=== PATIENT | female | born 2000 | race Hispanic/Latino ===

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

== ENCOUNTER 2022-04-23 18:16 | Emergency (ER) | payer OTHER ==
--- OUTSIDE RECORDS SUMMARY | 2022-04-23 18:34 | XMS REPORT | Continuity of Care Document ---
:2000 Author Organization [facility] t Address [address] [place] [address] Care Team Providers Name Role Phone PCP, PATIENT DOES NOT HAVE A Primary Care Physician UnavailEARL Maynard Attending Clinician Unavailable Rigo VASQUES, Earl Ellison Attending Clinician Ultrasound, Heather Attending Clinician Unavailable Carmen Garcia MD Attending Clinician [phone] CARMEN GARCIA Attending Clinician Unavailable MARQUEZ VARNER Attending Clinician Unavailable MARQUEZ VARNER Attending Clinician Unavailable Lab, Champ Morley Attending Clinician Unavailable Allison Galvez DO Attending Clinician Jack Aceves MD Attending Clinician Payers Payer Name Policy Type Policy Number Effective Date Expiration Date Asmita atkins [facility] [id number] 2021 00:00:00 Problems Condition Condition Condition Status Onset Resolution Last Treating Co mments Source Name Details Category Date Date Treatment Clinician Date Dichorioni Dichorioni Disease Active U nivers c c 4-22 ity [place] Medical , , [place] antepartum antepartum Twin Twin Disease Active Univers , , 4-22 it y of antepartum antepartum [place] , , [place] Medical unspecifie unspecifie Br anch d multiple d multiple gestation gestation type type High risk High risk Disease Active Uni vers , , 4-22 [place] of [place] Obesity Obesity Disease Active Univers during during 12-16 [place] [facility] Obesity, Obesity, Disease Active Unive rs Class III, Class III, 12-16 it y of BMI BMI 00:00: [place] 40-49.9 40-49.9 00 Medical (morbid (morbid Branch obesity) obesity) Allergies, Adverse Reactions, Alerts Allergy Allergy Status Severity Reaction(s) Onset Inactive Treating Comm ents Source Name Type Date Date Clinician NO KNOWN Drug Active [facility] ALLERGIE Class ity of [facility] Social History Social Habit Start Date Stop Date Quantity Comments Source ASSERTION 2021-09-10 [facility] 00:00:00 [facility] Alcohol intake 2022-04-21 2022-04-21 Ex-drinker [facility] 00:00:00 00:00:00 (finding) [facility] Exposure to 2022-04-10 2022-04-20 Not sure [facility] SARS-CoV-2 00:00:00 10:18:00 [facility] (event) [place] Tobacco use and 2022-03-24 2022-03-24 Smokeless tobacco Un iversity of exposure 00:00:00 00:00:[address] [facility] Sex Assigned At [birth year] Universit y of 00:00:00 00:00:00 [facility] Smoking Status Start Date Stop Date Source Never smoked tobacco [facility] Medications Ordered Filled Start Stop Current Ordering Indication Dosage Frequency Signature Comments Components Source Medication Medication Date Date Medication? Clinician (SIG) Name Name PNV 2021- No Take by Univers no.153/FA/o 04-21 mouth. ity o f m3/dha/epa/ 11:28: 00:00 [place] fish 41 :00 Medical ( Branch GUMMIES ORAL) aspirin 81 Yes [id number] 81mg Take 1 Univers mg EC 8-12 tablet by ity of tablet 00:00: mouth in [place] 00 the Medical morning. Branch PNV Yes [id number] 1{each} Take 1 Uni vers 112-iron-FA 8-12 Each by ity o f -om-3s-dha- 00:00: mouth [place] epa 00 daily. Medical (VITAFOL Branch GUMMIES) 3.33 mg iron- 0.33 mg Chew aspirin 81 0 Yes [id number] 81mg Take 1 Univers mg EC 8-12 tablet by ity of tablet 00:00: mouth in [place] 00 the Medical morning. Branch PNV 0 Yes [id number] 1{each} Take 1 Uni vers 112-iron-FA 8-12 Each by ity o f -om-3s-dha- 00:00: mouth [place] epa 00 daily. Medical (VITAFOL Branch GUMMIES) 3.33 mg iron- 0.33 mg Chew aspirin 81 0 Yes [id number] 81mg Take 1 Univers mg EC 8-12 tablet by ity of tablet 00:00: mouth in [place] 00 the Medical morning. Branch PNV 0 Yes [id number] 1{each} Take 1 Uni vers 112-iron-FA 8-12 Each by ity o f -om-3s-dha- 00:00: mouth [place] epa 00 daily. Medical (VITAFOL Branch GUMMIES) 3.33 mg iron- 0.33 mg Chew aspirin 81 2021-0 Yes [id number] 81mg Take 1 U nivers mg EC 6-03 tablet by ity of tablet 00:00: mouth [place] 00 daily. Medical Branch aspirin 81 2021-0 Yes [id number] 81mg Take 1 U nivers mg EC 6-03 tablet by ity of tablet 00:00: mouth [place] 00 daily. Medical Branch aspirin 81 2021-0 Yes [id number] 81mg Take 1 U nivers mg EC 6-03 tablet by ity of tablet 00:00: mouth [place] 00 daily. Medical Branch aspirin 81 2021-0 Yes [id number] 81mg Take 1 U nivers mg EC 6-03 tablet by ity of tablet 00:00: mouth [place] 00 daily. Medical Branch aspirin 81 2021-0 Yes [id number] 81mg Take 1 U nivers mg EC 6-03 tablet by ity of tablet 00:00: mouth [place] 00 daily. Medical Branch aspirin 81 2021-0 Yes [id number] 81mg Take 1 U nivers mg EC 6-03 tablet by ity of tablet 00:00: mouth [place] 00 daily. Medical Branch aspirin 81 2021-0 2021- No [id number] 81mg Take 1 Univers mg EC 01-27 tablet by ity of tablet 00:00: 00:00 mouth [place] 00 :00 daily. Medical Branch PNV 2021-0 Yes Take by Univers no.153/FA/o 4-22 mouth. ity of m3/dha/epa/ 11:08: [place] [address] Medical ( Branch GUMMIES ORAL) PNV 2021-0 Yes Take by Univers no.153/FA/o 4-22 mouth. ity of m3/dha/epa/ 11:08: [place] [address] Medical ( Branch GUMMIES ORAL) PNV 2021-0 Yes Take by Univers no.153/FA/o 4-22 mouth. ity of m3/dha/epa/ 11:08: [place] [address] Medical ( Branch GUMMIES ORAL) PNV 2021-0 Yes Take by Univers no.153/FA/o 4-22 mouth. ity of m3/dha/epa/ 11:08: [place] [address] Medical ( Branch GUMMIES ORAL) PNV 2021-0 Yes Take by Univers no.153/FA/o 4-22 mouth. ity of m3/dha/epa/ 11:08: [place] [address] Medical ( Branch GUMMIES ORAL) PNV 2021-0 Yes Take by Univers no.153/FA/o 4-22 mouth. ity of m3/dha/epa/ 11:08: [place] [address] Medical ( Branch GUMMIES ORAL) PNV 2021-0 Yes Take by Univers no.153/FA/o 4-22 mouth. ity of m3/dha/epa/ 11:08: [place] [address] Medical ( Branch GUMMIES ORAL) PNV 0 Yes Take by Univers no.153/FA/o 4-22 mouth. ity of m3/dha/epa/ 11:08: [place] [address] Medical ( Branch GUMMIES ORAL) Immunizations Ordered Filled Immunization Date Status Comments [facility] e Immunization Name Name [facility] 2022-03-24 Completed University of 00:00:00 [facility] TDAP 2022-03-24 Completed University of 00:00:00 [facility] TDAP 2022-03-24 Completed University of 00:00:00 [facility] TDAP 2022-03-24 Completed University of 00:00:00 [facility] TDAP 2022-03-24 Completed University 00:00:00 [place] [facility] TDAP 2022-03-24 Completed University 00:00:00 [place] [facility] Vital Signs Vital Name Observation Time Observation Value Comments Source Systolic blood 2022-04-21 16:12:00 125 mm[Hg] Univer sity of pressure [place] [facility] Diastolic blood 2022-04-21 16:12:00 83 mm[Hg] Unive rsity of pressure [place] [facility] Heart rate 2022-04-21 16:12:00 68 /min Universi ty [facility] [place] [facility] Body temperature 2022-04-21 16:12:00 36.72 Mary Univ ersity of [place] [facility] Body height 2022-04-21 16:12:00 152.4 cm Universi ty of [place] [facility] Body weight 2022-04-21 16:12:00 113.671 kg Universi ty of [place] [facility] BMI 2022-04-21 16:12:00 48.94 kg/m2 Universi ty [facility] [place] [facility] Systolic blood 2022-04-07 13:23:00 122 mm[Hg] Univer sity of pressure [place] [facility] Diastolic blood 2022-04-07 13:23:00 76 mm[Hg] Unive rsity of pressure [place] [facility] Heart rate 2022-04-07 13:23:00 71 /min Universi ty [facility] [place] [facility] Body temperature 2022-04-07 13:23:00 36.83 Mary Univ ersity of [place] [facility] Respiratory rate 2022-04-07 13:23:00 18 /min Univ ersity of [place] [facility] Body height 2022-04-07 13:23:00 152.4 cm Universi ty [facility] [place] [facility] Body weight 2022-04-07 13:23:00 109.317 kg [facility]i ty [facility] [place] [facility] BMI 2022-04-07 13:23:00 47.07 kg/m2 [facility]i ty [facility] [place] [facility] Systolic blood 2022-03-24 14:26:00 118 mm[Hg] Univer sity of pressure [place] [facility] Diastolic blood 2022-03-24 14:26:00 84 mm[Hg] Unive rsity of pressure [place] [facility] Heart rate 2022-03-24 14:26:00 72 /min Universi ty [facility] [place] [facility] Body temperature 2022-03-24 14:26:00 36.78 [facility] Body height 2022-03-24 14:26:00 152.4 cm Universi ty [facility] [place] [facility] Body weight 2022-03-24 14:26:00 106.595 kg Universi ty [facility] [place] [facility] BMI 2022-03-24 14:26:00 45.90 kg/m2 Universi ty [facility] Branch Systolic blood 2022-03-10 14:05:00 107 mm[Hg] Univer sity [facility] Diastolic blood 2022-03-10 14:05:00 79 mm[Hg] [facility] Heart rate 2022-03-10 14:05:00 138 /min Universi ty [facility] Body temperature 2022-03-10 14:05:00 37 [facility] Body height 2022-03-10 14:05:00 152.4 cm Universi ty [facility] Body weight 2022-03-10 14:05:00 104.962 kg Universi ty [facility] Medical Branch BMI 2022-03-10 14:05:00 45.19 kg/m2 Universi ty [facility] Procedures Procedure Date / Time Performed Performing Clinician [facility] e NON-STRESS TEST 2022-04-21 17:15:51 Earl Sierra [facility] POCT URINALYSIS W/O 2022-04-21 00:00:00 Earl Sierra [facility] POCT URINALYSIS W/O 2022-04-07 00:00:00 Marquez [facility] TDAP VACCINE, >11 YRS, 2022-03-24 14:44:04 Earl Sierra [facility] POCT URINALYSIS W/O 2022-03-24 00:00:00 Earl Sierra [facility] POCT URINALYSIS W/O 2022-03-10 00:00:00 Marquez [facility] SECOND AND THIRD 2022-02-23 12:54:00 Earl Sierra [facility] ULTRASOUND Medical [facility] Encounters Start End Encounter Admission Attending Care Care Encounter Source Date/Time Date/Time Type Type Clinicians Facility Department ID 2022-05-18 2022-05-18 Outpatient P [facility] [id number] Univers 08:00:00 08:00:00 [id number] ity [facility] 2022-05-02 2022-05-02 Outpatient R [facility] [id number] Univers 09:00:00 09:00:00 [id number] ity [facility] 2022-05-02 2022-05-02 Outpatient R [facility] [id number] Univers 09:00:00 09:00:00 ity [facility] 2022-04-21 2022-04-21 Outpatient R EARL SIERRA [facility] [id number] Univers 11:15:00 12:05:44 ity [facility] 2022-04-21 2022-04-21 Routine Earl Sierra [facility] 1.2.840.114 [id number] Univers 11:15:00 12:05:44 Cam MARION 350.1.13.10 i ty of Visit WOMEN'S 4.2.7.2.686 [facility] [id number] [address] 2022-04-21 2022-04-21 Outpatient R EARL SIERRA [facility] [id number] Univers 11:15:00 11:15:00 [id number] ity [facility] 2022-04-20 2022-04-20 Motor Teacher Ultrasound, [facility] 1.2 .840.114 [id number] Univers 08:00:00 09:00:00 Visit Carmen Garcia HOME HEALTH PHYSICAL THERAPIST 350.1. 13.[address] [facility] 4.2.7.2.686 [place] MATERNAL [id number] Med ical & CHILD [address] [place] [address] 2022-04-20 2022-04-20 Outpatient P MARVIN [facility] [id number] Univers 08:00:00 08:00:00 SYD it y of CARMEN Tian [facility] 2022-04-07 2022-04-07 Outpatient R MARQUEZ VARNER [facility] B [id number] Univers 08:30:00 08:46:14 PAULAMARQUEZ BAE ity [facility] 2022-04-07 2022-04-07 Routine Paulajoaquín RIFLORINDA [place] 1.2.840.114 [id number] Univers 08:30:00 08:46:14 Marquez THOMPS[place] 350.1.13.10 i ty of Visit [place] 4[place]2.686 [place] [id number] [address] 2022-04-07 2022-04-07 Outpatient R MARQUEZ VARNER [facility] B [id number] Univers 08:30:00 08:30:00 PAULAMARQUEZ BAE [id number] ity [facility] 2022-03-28 2022-03-28 Telephone Earl Sierra [facility] 1.2.840.114 [id number] Univers 00:00:00 00:00:00 Scot THOM[place] 350.1.13.10 it y of [place] 4[place]2.7.2.686 [place] [id number] [address] 2022-03-27 2022-03-27 Motor Teacher Lab, Ang - [facility] 1.2.840.1 [id number] Univers 08:30:00 08:45:00 Visit Earl Sierra [facility] 350.1.13.10 ity of [place] 4.2.7.2.686 [place] GARRISON?BLEA [id number] Md valentina [address] MEDICAL OFFICE BUILDING 2022-03-27 2022-03-27 Outpatient R [facility] [id number] Univers 08:30:00 08:30:[id number] [facility] 2022-03-27 2022-03-27 Outpatient R RIGO EARL [facility] [id number] Univers 08:30:00 08:30:00 ity [facility] 2022-03-24 2022-03-24 Outpatient R RIGO EARL [facility] [id number] Univers 09:15:00 09:49:29 ity [facility] 2022-03-24 2022-03-24 Routine SierraEarl [facility] 1.2.840.114 [id number] Univers 09:15:00 09:49:29 Scot [place] 350.1.13.10 i ty of Visit [place] 4[place]2.7.2.[place] [id number] [address] 2022-03-24 2022-03-24 Outpatient R EARL SIERRA [facility] [id number] Univers 09:15:00 09:15:00 [id number] ity [facility] 2022-03-23 2022-03-23 Motor Teacher Ultrasound, Champ[facility] 1.2 .840.114 [id number] Univers 08:00:00 09:00:00 Visit Allison Galvez HOME HEALTH PHYSICAL THERAPIST 350.1.13.10 ity of REGIONAL 4.2.7.2.686 [place] MATERNAL [id number] [facility] & CHILD [address] [place] [address] 2022-03-23 2022-03-23 Outpatient P VENU [facility] [id number] Univers 08:00:00 08:00:00 ALLISON ity [facility] 2022-03-14 2022-03-14 Outpatient R [facility] [id number] Univers 09:00:00 09:00:00 [id number] ity [facility] 2022-03-14 2022-03-14 Outpatient R EARL SIERRA [facility] [id number] Univers 09:00:00 09:00:00 ity [facility] 2022-03-10 2022-03-10 Outpatient R SIERRA EARL [facility] [id number] Univers 09:15:00 09:23:48 ity [facility] 2022-03-10 2022-03-10 Routine TritschlerMarquez [facility] 1.2. 840.114 [id number] Univers 09:15:00 09:23:48 Prisca Sierralawrence [place] 350.1.13.10 ity of Visit [place] 4.2.7.2.[place] [id number] [address] 2022-02-23 2022-02-23 Motor Teacher Ultrasound, Ang[facility] 1.2 .840.114 [id number] [facility] 08:00:00 09:30:00 Visit Jack Aceves HOME HEALTH PHYSICAL THERAPIST 350.1.13.10 [facility] 4.2.7.2.686 [place] MATERNAL [id number] [facility] ical & CHILD [address] [place] [address] Results Test Description Test Time Test Comments Results Result Comments Source POCT URINALYSIS W/O SPECIFIC GRAVITY 2022-04-21 16:23:00 Test Item Value Reference Range Interpretation Comme nts POCT PH U (test code = 3254) n/a 5-8 POCT U LEUK EST (test code = 3263) n/a Negative - Negative POCT U NIT (test code = 3262) n/a Negative - Negative POCT U PROT (test code = 3259) Negative - Negative POCT U GLU (test code = 3256) Normal Negative - Negative POCT U KETONE (test code = 3258) n/a Negative - Negative POCT U BLD (test code = 3257) n/a Negative - Negative [facility]/O SPECIFIC [id number] 13:28:00 Test Item Value Reference Range Interpretation Comments POCT PH U (test code = 3254) N/A 5-8 POCT U LEUK EST (test code = N/A Negative - Negative 3263) POCT U NIT (test code = 3262) N/A Negative - Negative POCT U PROT (test code = 3259) Trace Negative - Negative POCT U GLU (test code = 3256) Negative Negative - Negative POCT U KETONE (test code = 3258) N/A Negative - Negative POCT U BLD (test code = 3257) N/A Negative - Negative [facility] W/O SPECIFIC [id number] 14:25:00 Test Item Value Reference Range Interpretation Comments POCT PH U (test code = 3254) n/a 5-8 POCT U LEUK EST (test code = 3263) n/a Negative - Negative POCT U NIT (test code = 3262) n/a Negative - Negative POCT U PROT (test code = 3259) ++100 Negative - Negative POCT U GLU (test code = 3256) Normal Negative - Negative POCT U KETONE (test code = 3258) n/a Negative - Negative POCT U BLD (test code = 3257) n/a Negative - Negative [facility] W/O SPECIFIC [id number] 14:11:00 Test Item Value Reference Range Interpretation Comments POCT PH U (test code = 3254) n/a 5-8 POCT U LEUK EST (test code = n/a Negative - Negative 3263) POCT U NIT (test code = 3262) n/a Negative - Negative POCT U PROT (test code = 3259) negative Negative - Negative POCT U GLU (test code = 3256) normal Negative - Negative POCT U KETONE (test code = 3258) n/s Negative - Negative POCT U BLD (test code = 3257) n/a Negative - Negative [facility], NAAT, [id number] 18:09:27 Test Item Value Reference Range Interpretation Comments GONORRHEA, NAAT NEGATIVE NEGATIVE IMPORTA NT NOTICE: SEE (test code = [place] [address]) [email or web address] Cohda WirelesssUrineKit Note: Assay methodology is nucleic acid amplification b y second baker m ediated amplification ( TMA) utilizing the A ptima Combo 2 Assay. CHLAMYDIA, NAAT NEGATIVE NEGATIVE IMPORTA NT NOTICE: SEE (test code = [place] [address]) [email or web address] New York Times/Alvarez heCobasUrineKit Note: Assay methodology is nucleic acid amplification b y second baker m ediated amplification ( TMA) utilizing the A ptima Combo 2 Assay. UNLES S OTHERWISE INDICATED, ALL TESTING PERFORMED [facility] NICNC PATHOLOGY LABOR [facility] [address] [place] [id number] [place] [address] DIRECTOR: MARCELLA MCCULLOUGH M.D. CLIA NUMBER [id number] CAP ACCREDITATION N O. [id number] HEMOGLOBIN [id number] 09:22:30 Test Item Value Reference Range Interpretation Comments HEMOGLOBIN A1 (test 97.1 % 95.0-98.5 code = 2575) HEMOGLOBIN A2 (test 2.9 % 1.6-3.7 code = 2576) HEMOGLOBIN F () 0.0 % 0.0-2.0 (test code = 2722) HEMOGLOBIN S (test NONE % NONE DETECTED code = 2724) HEMOGLOBIN C (test NONE % NONE DETECTED code = 2726) OTHER HEMOGLOBIN NONE DETEC % NONE DETECTED VARIANT (test code = 62790) PATHOLOGIST'S (NOTE) NO ABNORMAL INTERPRETATION (test HEMOGLO BINS code = 2577) IDENTIFIED. PENNY FAITH M.D. CT/NG, NAAT, [id number] 08:17:43 Test Item Value Reference Range Interpretation Comments GONORRHEA, NAAT TEST NOT PERFORMED NEGATIVE Unable to perform (test code = testing, [place] [address]) not received.Charge s adjusted as applicable. CHLAMYDIA, NAAT TEST NOT PERFORMED NEGATIVE Unable to perform (test code = testing, specim [place] 330[address]) not received.Charge s adjusted as applicable. DRUG ABUSE SCREEN 10 REFLEX [id number] 08:17:28 Test Item Value Reference Interpretation Comments Range COMMENTS (test code TEST NOT Unable t o perform = 3222) PERFORMED testing, specim en not received.Charge s adjusted as elena licable. Note: Validity testing suggests an alt ered, adulterated or compromised spe cimen. Analytic detect ion may be affected. Consideration s hould be given to repeat analysis on a newly acqu ired specimen or cli nical correlation and medication revi ew. AMPHETAMINES (test TEST NOT NEGATIVE code = 3201) PERFORMED BARBITURATES (test TEST NOT NEGATIVE code = 3202) PERFORMED BENZODIAZEPINES TEST NOT NEGATIVE (test code = 3203) PERFORMED CANNABINOIDS (test TEST NOT NEGATIVE code = 3204) PERFORMED COCAINE METABOLITE TEST NOT NEGATIVE (test code = 3205) PERFORMED OPIATES (test code = TEST NOT NEGATIVE 3209) PERFORMED OXYCODONE (test code TEST NOT NEGATIVE = 68617) PERFORMED PHENCYCLIDINE (test TEST NOT NEGATIVE code = 3210) PERFORMED METHADONE (test code TEST NOT NEGATIVE = 3207) PERFORMED BUPRENORPHINE (test TEST NOT NEGATIVE code = 42066) PERFORMED SOURCE (test code = TEST NOT SEE BELOW FOR 729083) PERFORMED THRESHOLDS AND IMPORTANT METHOD NOTES * ANALYTE SCREENING CUTOF F CONFIRMATORY CUTOFF ___AMPHETAMINES 500 NG/ML 100 NG/MLBARBITURAT ES 200 NG/ML 100 NG/MLBENZODIAZE PINES 200 NG/ML 100 NG/MLCANNABINOI DS (THC) 20 NG/ML 15 NG/ MLCOCAINE METABOLITES 150 NG/ML 100 NG/MLOPIATE METABOLITES 30 0 NG/ML 100 NG/MLOXYCOD ONE 100 NG/ML 100 NG/MLPHENCYCLID INE (PCP) 25 NG/ML 25 NG/MLMETHADONE 300 NG/ML 100 NG/MLBUPREN ORPHINE 5 NG/ML 5 NG/ML N OTE: Screening metho dology is qualitative Enz yme Immunoassay.The screening metho d may be less sensitive for certain medicationsincl uding clonazepam and lorazepam in the benzodia zepine assay andtramad ol or fentanyl in the opiate assay, amongst others. Patientcomplian ce, hydration statu s, timing and dose of med ications, drugabsorption and specimen qualit y may affect screenin g assay.For clini aleksandr discrepancies, consider directed testin g for specificcompoun ds or contact the lab oratory within specimen stability tofor west for confirmatory te sting. This test is sp ecified for medicalpurp oses only. It is not valid for forensic us e. UNLESS OTHERWISE INDIC ATED, ALL TESTING PERFORM ED ATCLINICAL PATH OLOGY LABORATORIES, I OR. [address] [place] [id number] LABORATORY DIRE CTOR: MARCELLA OLSON M.D. CLIA NUMBER [id number] [facility] [place] [id number] DRUG ABUSE SCREEN 10 REFLEX [id number] 05:02:41 Test Item Value Reference Range Interpretation Comments AMPHETAMINES (test NEGATIVE NEGATIVE code = 3201) BARBITURATES (test NEGATIVE NEGATIVE code = 3202) BENZODIAZEPINES (test NEGATIVE NEGATIVE code = 3203) CANNABINOIDS (test NEGATIVE NEGATIVE code = 3204) COCAINE METABOLITE NEGATIVE NEGATIVE (test code = 3205) OPIATES (test code = NEGATIVE NEGATIVE 3209) OXYCODONE (test code NEGATIVE NEGATIVE = 15699) PHENCYCLIDINE (test NEGATIVE NEGATIVE code = 1420) METHADONE (test code NEGATIVE NEGATIVE = 3207) BUPRENORPHINE (test NEGATIVE NEGATIVE code = 61615) SOURCE (test code = URINE SEE BELOW FOR 852324) THRESHOLDS AND IMPORTANT METHOD NOTES * ANALYTE SCREENING CUTOF F CONFIRMATORY CUTOFF AMPHETAMINES 50 0 NG/ML 100 NG/MLBARBIT URATES 200 NG/ML 100 NG/MLBENZODIAZE PINES 200 NG/ML 100 NG/MLCANNABINOI DS (THC) 20 NG/ML 15 NG /MLCOCAINE METABOLITES 150 NG/ML 100 NG/MLOPIATE MET ABOLITES 300 NG/ML 100 NG/MLOXYCODONE 100 NG/ML 100 NG/MLPHENCY CLIDINE (PCP) 25 NG/ML 25 NG/MLMETHADONE 300 NG/ML 100 NG/MLBUPREN ORPHINE 5 NG/ML 5 NG/ML N OTE: Screening metho dology is qualitative Enz yme Immunoassay.The screening method may be l ess sensitive for c ertain medicationsincl uding clonazepam and lorazepam in the benzodia zepine assay andtramad ol or fentanyl in the opiate assay, amongst others. Patientcomplian ce, hydration statu s, timing and dose of med ications, drugabsorption and specimen qualit y may affect screenin g assay.For clini aleksandr discrepancies, consider directed testin g for specificcompoun ds or contact the lab oratory within specimen stability toforward for confirmatory te sting. This test is sp ecified for medicalpurp oses only. It is not valid for forensic use. VARICELLA ZOSTER [id number] 18:06:16 Test Item Value Reference Range Interpretation Comments VARICELLA ZOSTER IgG 37 INDEX SEE BELOW L INTERP RETATION VZV IgG (test code = 86853) NEGATIVE . . . . . . . . . . . . INDEX < 135 EQUIVOCAL. . . . . . . . . . . . INDEX 1 35-164 NOTE: CONSIDER RETESTING IN A CLINICALLY SUITABLE PERIOD OF TIME, NO SOONER THAN 1-2 WEEKS. POSITIVE . . . . . . . . . . . . INDEX >=165 CULTURE, [id number] 09:18:22SPECIMEN NUMBER: [id number] CULTURE, URINE SPECIMEN NUMBER: [id number] SPECIMEN COMMENT: URINE SOURCE:URINE REPORT STATUS: FINAL FINAL REPORT: 11/06/2021 10-50,000 CFU/ML MIXED UROGENITAL FLORARPR 2021-11-05 05:45:07 Test Item Value Reference Range Interpretation Comments RPR RESULT (test code = NON-REACTIVE NON-REACTIVE 3501) RPR TITER (test code = 3500) NOT INDIC. TITER NOT INDIC. OBSTETRIC PANEL + [id number] 04:21:28 Test Item Value Reference Range Interpretation Comments WBC (test code = 7.6 K/UL 3.5-11.0 1001) RBC (test code = 4.46 M/UL 3.80-5.40 1002) HEMOGLOBIN (test 13.5 G/DL 11.5-15.5 code = 1003) HEMATOCRIT (test 39.2 % 34.0-45.0 code = 1004) MCV (test code = 87.9 fL 80.0-99.0 1005) MCH (test code = 30.3 PG 25.0-33.0 1006) MCHC (test code = 34.4 G/DL 31.0-36.0 1007) RDW (test code = 12.3 % 11.5-15.0 1038) NEUTROPHILS (test 67.0 % code = 1008) LYMPHOCYTES (test 23.3 % code = 1010) MONOCYTES (test 7.3 % code = 1011) EOSINOPHILS (test 1.0 % code = 1012) BASOPHILS (test 0.7 % code = 1013) IMMATURE 0.7 % GRANULOCYTES (test code = 1036) NUCLEATED RBCS 0.0 /100 WBC'S See_Comment [Automated message] (test code = 1065) The syste m which generated this result transmit ana reference range : 0.0. The refere nce range was not u sed to interpret th is result as normal/abnormal . PLATELET COUNT 248 K/UL 130-400 (test code = 1015) ABSOLUTE 5.12 K/UL 1.50-7.50 NEUTROPHILS (test code = 1066) ABSOLUTE 1.78 K/UL 1.00-4.00 LYMPHOCYTES (test code = 1067) ABSOLUTE MONOCYTES 0.56 K/UL 0.20-1.00 (test code = 1068) ABSOLUTE 0.08 K/UL 0.00-0.50 EOSINOPHILS (test code = 1040) ABSOLUTE BASOPHILS 0.05 K/UL 0.00-0.20 (test code = 1069) ABS IMMATURE 0.05 K/UL 0.00-0.10 GRANULOCYTES (test code = 1020) ABS NUCLEATED RBCS 0.00 K/UL 0.00-0.11 (test code = 32458) BLOOD TYPE AND RH A POSITIVE A HISTORI ALEKSANDR RECORD (test code = 3901) CHECK FOR PREVIOUS RESULTS IS NOT PERFORMED.THESE RESULTS SHOULD BE CORRELATED WITH RESULTS OF PRIO R BLOODTYPING AND ANTIBODY SCREEN STUDIES. ANTIBODY SCREEN NEGATIVE NEGATIVE A HISTORICA L RECORD (test code = 3902) CHECK FOR PREVIOUS RESULTS IS NOT PERFORMED.THESE RESULTS SHOULD BE CORRELATED WITH RESULTS OF PRIO R BLOODTYPING AND ANTIBODY SCREEN STUDIES. RUBELLA ANTIBODY 262 IU/ML SEE BELOW INTERPRETA TION SCREEN (test code = RUBELLA IgG 4600) NON-REACTIVE/NO N-IMM UNE . . . . . . . IU/ML <10 REACTIVE/IMMUNE . . . . . . . . . . . IU/ML >=10 RUBELLA IgG INTERP REACTIVE REACTIVE (test code = 92815) HEPATITIS B SURF AG NON-REACTIVE NON-REACTIVE (test code = 2739) RPR (test code = NON-REACTIVE NON-REACTIVE 86263) RPR TITER (test NOT INDIC. NOT INDIC. code = 3500) TITER HIV 1/2 4TH GEN, NON-REACTIVE NON-REACTIVE RFLX CONF (test code = 3514) HEPATITIS C REFLEX [id number] 04:21:28 Test Item Value Reference Range Interpretation Comments HEPATITIS C ANTIBODY (test code NON-REACTIVE NON-REACTIVE = 4675)
--- NOTE | 2022-04-23 18:46 | ER ---
Nurse's Notes [facility] Name: Monika Ames Age: 22 yrs Sex: Female : 2000 Arrival Date: 04/23/2022 Time: 18:18 Bed Waiting Private MD: Diagnosis: Acute Otalgia Presentation: 04/23 18:37 Chief complaint: Left ear pain 8/10 x 2 days. Pt reports she is 34 weeks . hb Coronavirus screen: At this time, the client does not indicate any symptoms associated with coronavirus-19. Ebola Screen: No symptoms or risks identified at this time. Initial Sepsis Screen: Does the patient meet any 2 criteria? No. Patient's initial sepsis screen is negative. Does the patient have a suspected source of infection? No. Patient's initial sepsis screen is negative. Risk Assessment: Do you want to hurt yourself or someone else? Patient reports no desire to harm self or others. Onset of symptoms was April 21, 2022. 18:37 Method Of Arrival: Ambulatory hb 18:37 Acuity: GABRIELLA 4 hb Triage Assessment: 18:40 General: Appears in no apparent distress. Behavior is calm, cooperative. Pain: Pain hb currently is 8 out of 10 on a pain scale. EENT: Reports left ear pain. Neuro: Level of Consciousness is awake, alert, obeys commands, Oriented to person, place, time, situation. Cardiovascular: Patient's skin is warm and dry. Respiratory: Respiratory effort is even, unlabored, Respiratory pattern is regular, symmetrical. Historical: - Allergies: 18:39 No Known Allergies; hb - Home Meds: 18:39 None [Active]; hb - PMHx: 18:39 None; hb - PSHx: 18:39 None; hb - Immunization history:: Adult Immunizations up to date. - Social history:: Smoking status: Patient denies any tobacco usage or history of. Screenin:41 Abuse screen: Denies threats or abuse. Denies injuries from another. Nutritional hb screening: No deficits noted. Tuberculosis screening: No symptoms or risk factors identified. Fall Risk None identified. Assessment: 18:41 General: see triage assessment. hb Vital Signs: 18:37 BP 149 / 91; Pulse 100; Resp 18; Temp 99(TE); Pulse Ox 99% on R/A; Pain 8/10; hb ED Course: 18:18 Patient arrived in ED. rg4 18:19 Ricardo Saleh PA is PHCP. gisele 18:19 Collin López MD is Attending Physician. jm 18:39 Triage completed. hb 18:39 Arm band placed on. hb 18:41 Patient has correct armband on for positive identification. hb 18:41 No provider procedures requiring assistance completed. Patient did not have IV access hb during this emergency room visit. Administered Medications: No medications were administered Medication: 18:41 VIS not applicable for this client. hb Outcome: 18:45 Discharge ordered by . [facility] 18:49 Discharged to home ambulatory. hb 18:49 Condition: stable 18:49 Discharge instructions given to patient, Instructed on discharge instructions, follow up and referral plans. medication usage, Demonstrated understanding of instructions, follow-up care, medications, Prescriptions given X 2. 18:49 Patient left the ED. hb Signatures: Ricardo Saleh PA PA jmm Baxter, Heather RN RN Poonam Alonzo rg4 Corrections: (The following items were deleted from the chart) 18:40 18:37 Chief complaint: Left ear pain 8/10 x 2 days. hb hb
--- NOTE | 2022-04-23 18:46 | EDPHYS ---
Physician Documentation [facility] Name: Monika Ames Age: 22 yrs Sex: Female : 2000 Arrival Date: 04/23/2022 Time: 18:18 Bed Waiting Private MD: ED Physician Collin López HPI: 04/23 18:44 This 22 yrs old Female presents to ER via Ambulatory with complaints of Ear jmm Pain. 18:44 The patient presents with pain. Onset: The symptoms/episode began/occurred gradually, 1 jmm day(s) ago. Modifying factors: The symptoms are alleviated by nothing, the symptoms are aggravated by nothing. Associated signs and symptoms: Pertinent negatives: cough, vomiting. The patient has not experienced similar symptoms in the past. Historical: - Allergies: 18:39 No Known Allergies; hb - Home Meds: 18:39 None [Active]; hb - PMHx: 18:39 None; hb - PSHx: 18:39 None; hb - Immunization history:: Adult Immunizations up to date. - Social history:: Smoking status: Patient denies any tobacco usage or history of. ROS: 18:44 Constitutional: Negative for fever, chills, and weight loss, Eyes: Negative for injury, jmm pain, redness, and discharge. 18:44 ENT: Positive for ear pain. 18:44 All other systems are negative. Exam: 18:44 Constitutional: This is a well developed, well nourished patient who is awake, alert, jmm and in no acute distress. Head/Face: atraumatic. Eyes: EOMI, no conjunctival erythema appreciated 18:44 Neck: Trachea midline, Supple Chest/axilla: Normal chest wall appearance and motion. Cardiovascular: Regular rate and rhythm. No edema appreciated Respiratory: Normal respirations, no respiratory distress appreciated Abdomen/GI: Non distended Back: Normal ROM Skin: General appearance color normal MS/ Extremity: Moves all extremities, no obvious deformities appreciated, no edema noted to the lower extremities Neuro: Awake and alert Psych: Behavior is normal, Mood is normal, Patient is cooperative and pleasant 18:44 ENT: Ear canal(s): swelling, that is moderate, of the left canal, TM's: erythema, that is mild. Vital Signs: 18:37 BP 149 / 91; Pulse 100; Resp 18; Temp 99(TE); Pulse Ox 99% on R/A; Pain 8/10; hb MDM: 18:45 Data reviewed: vital signs, nurses notes. Counseling: I had a detailed discussion with [facility] the patient and/or guardian regarding: the historical points, exam findings, and any diagnostic results supporting the discharge/admit diagnosis, the need for outpatient follow up, to return to the emergency department if symptoms worsen or persist or if there are any questions or concerns that arise at home. 18:45 Patient medically screened. [facility] Administered Medications: No medications were administered Disposition: 04/24 07:09 Co-signature as Attending Physician, Collin López MD. rn Disposition Summary: 04/23/22 18:45 Discharge Ordered Location: Home [facility] Condition: Stable [facility] Diagnosis - Acute Otalgia [facility] Followup: [facility] - With: Private Physician - When: 1 - 2 days - Reason: Recheck today's complaints, Continuance of care, Re-evaluation by your physician Discharge Instructions: - Discharge Summary Sheet [facility] - Earache, Adult [facility] Forms: - Medication Reconciliation Form [facility] - Thank You Letter [facility] - Antibiotic Education [facility] - Prescription Opioid Use [facility] Prescriptions: - Cortisporin-TC 3.3-3-10-0.5 mg/mL Otic Suspension - instill 4 drops by OTIC route every 6 hours; 1 bottle; Refills: 0, Product [facility] Selection Permitted - Augmentin 875-125 mg Oral Tablet - take 1 tablet by ORAL route every 12 hours for 10 days; 20 tablet; Refills: 0, [facility] Product Selection Permitted Signatures: Ricardo Saleh PA PA [facility] Collin López MD MD rn Baxter, Heather, RN RN hb
[2022-04-23 20:55] VITALS: BP 149/91; TEMP 99; O2SAT 99
== END 2022-04-23 18:49 | disposition home or self-care (01) ==
LOC: ER 18:16
DX: H92.02 Otalgia, left ear (principal)
CPT/HCPCS: 99282

== ENCOUNTER 2023-02-27 21:12 | Emergency (ER) | payer OTHER ==
--- OUTSIDE RECORDS SUMMARY | 2023-02-27 21:17 | XMS REPORT | Continuity of Care Document ---
:2000 Author Organization [facility] t Address [address] [place] [address] Care Team Providers Name Role Phone PCP, PATIENT DOES NOT HAVE A Primary Care Physician Unavaila MARQUEZ Whalen Attending Clinician Unavailable MARQUEZ VARNER Attending Clinician Unavailable Reina Rodriguez MA Attending Clinician Unavailable Nurse, [facility] Attending Clinician Unavailable EARL SIERRA Attending Clinician Unavailable Kim Bentley MD Attending Clinician Earl Sierra MD Attending Clinician KIM BENTLEY Attending Clinician Unavailable 1, [facility] Nst Room Attending Clinician Unavailable Ultrasound, [facility]-Mfjazlyn Attending Clinician Unavailable Carmen Garcia MD Attending Clinician [phone] CARMEN GARCIA Attending Clinician Unavailable Lab, Ang - Db Attending Clinician Unavailable Allison Galvez DO Attending Clinician Anna Aceves MD Attending Clinician ANNA ACEVES Attending Clinician Unavailable 3, [facility] [facility] Usg Room Attending Clinician Unavailable Carmelina Boss MD Attending Clinician [phone] CARMELINA BOSS Attending Clinician Unavailable Doctor Unassigned, [place] Attending Clinician Unavailable RIGO EARL CAM Admitting Clinician Unavailable Earl Sierra MD Admitting Clinician Payers Payer Name Policy Type Policy Number Effective Date Expiration Date S milly [facility] [id number] 2021 00:00:00 Problems Condition Condition Condition Status Onset Resolution Last Treating Co mments Source Name Details Category Date Date Treatment Clinician Date Need for Need for Disease Active Unive rs vaccinatio vaccinatio 2-06 it y of n n 00:00: [place] [address] Medical Branch Elevated Elevated Disease Active Unive rs blood blood 2-06 ity of pressure pressure 00:00: [place] reading reading 00 Medical without without Branch diagnosis diagnosis of of hypertensi hypertensi on on Well woman Well woman Disease Active 2021-08 U nivers exam exam 0-30 ity of 00:00: [place] [facility] Branch BMI BMI Disease Active 2021-08 Univers 37.0-37.9, 37.0-37.9, 0-30 it y of adult adult 00:00: [place] [facility] BMI BMI Disease Active Univers 45.0-49.9, 45.0-49.9, 9-17 it y of adult adult 00:00: [address] Branch Encounter Encounter Disease Active Uni vers for post for post 9-16 ity of surgical surgical 00:00: [place] wound wound 00 Medical check check Branch Pre-eclamp Pre-eclamp Disease Active U nivers alejandro, mild, alejandro, mild, 9-09 [place] [address] [place] [address] PROM PROM Disease Active Univers (premature (premature 9-08 it y of rupture of rupture of 00:[place] membranes) membranes) 00 Me dical [place] Liveborn Liveborn Disease Active Unive rs infant, of infant, of 9-08 it y of twin twin 00:00: [place] , , 00 Me dical born in born in [facility] hospital by by delivery delivery Dichorioni Dichorioni Disease Active U nivers c c 4-22 ity of diamniotic diamniotic 00:00: [place] twin twin 00 Medical , , Br anch antepartum antepartum High risk High risk Disease Active Uni vers , , 4-22 [place] y of antepartum antepartum 00:[place] [facility] Branch Obesity Obesity Disease Active Univers during during 4-22 ity of 00:00: [address] BMI BMI Disease Active Univers 50.0-59.9, 50.0-59.9, 4-22 it y of adult adult 00:00: [address] Allergies, Adverse Reactions, Alerts Allergy Allergy Status Severity Reaction(s) Onset Inactive Treating Comm ents Source Name Type Date Date Clinician NO KNOWN Drug Active Univers ALLERGIE Class ity of S [facility] Social History Social Habit Start Date Stop Date Quantity Comments Source ASSERTION 2021-09-10 [facility] 00:00:00 [facility] History of Passive smoker [facility] tobacco use [facility] Alcohol intake 2022-10-02 2022-10-02 Ex-drinker [facility] 00:00:00 00:00:00 (finding) [facility] Exposure to 2022-09-21 2022-10-01 Not sure [facility] SARS-CoV-2 00:00:00 20:30:00 [facility] (event) [place] Tobacco use and 2022-05-04 2022-05-04 Smokeless tobacco Un iversity of exposure 00:00:00 00:00:00 non-user [facility] Sex Assigned At [birth year] Universit y of 00:00:00 00:00:00 [facility] Smoking Status Start Date Stop Date Source Never smoked tobacco [facility] Medications Ordered Filled Start Stop Current Ordering Indication Dosage Frequency Signature Comments Components Source Medication Medication Date Date Medication? Clinician (SIG) Name Name norgestimat Yes [id number] 1{tbl} Take 1 Univers e-ethinyl 1-18 tablet by ity o f estradioL 00:00[place] ([place]TH[place] 00 the Medical TRI-CYCLEN, morning. Bran ch 28,) 0.18/0.215/ 0.25 mg-35 mcg (28) tablet norgestimat Yes [id number] 1{tbl} Take 1 Univers e-ethinyl 1-18 tablet by ity o f estradioL 00:00: [place] ([place]TH[place] 00 the Medical TRI-CYCLEN, morning. Bran ch 28,) 0.18/0.215/ 0.25 mg-35 mcg (28) tablet norgestimat Yes [id number] 1{tbl} Take 1 Univers e-ethinyl 1-18 tablet by ity o f estradioL 00:00: [place] ([place]TH[place] 00 the Medical TRI-CYCLEN, morning. Bran ch 28,) 0.18/0.215/ 0.25 mg-35 mcg (28) tablet norgestimat 3-0 Yes [id number] 1{tbl} Take 1 Univers e-ethinyl 1-18 tablet by ity o f estradioL 00:00: [place] ([place]TH[place] 00 the Medical TRI-CYCLEN, morning. Bran ch 28,) 0.18/0.215/ 0.25 mg-35 mcg (28) tablet norgestimat 2022-0 Yes [id number] 1{tbl} Take 1 Univers e-ethinyl 1-18 tablet by ity o f estradioL 00:00: [place] ([place]TH[place] 00 the Medical TRI-CYCLEN, morning. Bran ch 28,) 0.18/0.215/ 0.25 mg-35 mcg (28) tablet norgestimat 2022-0 Yes [id number] 1{tbl} Take 1 Univers e-ethinyl 1-18 tablet by ity o f estradioL 00:00: [place] ([place]TH[place] 00 the Medical TRI-CYCLEN, morning. Bran ch 28,) 0.18/0.215/ 0.25 mg-35 mcg (28) tablet norgestimat 2022-0 Yes [id number] 1{tbl} Take 1 Univers e-ethinyl 1-18 tablet by ity o f estradioL 00:00: [place] ([place]TH[place] 00 the Medical TRI-CYCLEN, morning. Bran ch 28,) 0.18/0.215/ 0.25 mg-35 mcg (28) tablet norgestimat 2021-1 Yes [id number] 1{tbl} Take 1 Univers e-ethinyl 0-24 tablet by ity o f estradioL 00:00: [place] ([place]TH[place] 00 the Medical TRI-CYCLEN, morning. Bran ch 28,) 0.18/0.215/ 0.25 mg-35 mcg (28) tablet norgestimat 2021-1 Yes [id number] 1{tbl} Take 1 Univers e-ethinyl 0-24 tablet by ity o f estradioL 00:00: [place] ([place]TH[place] 00 the Medical TRI-CYCLEN, morning. Bran ch 28,) 0.18/0.215/ 0.25 mg-35 mcg (28) tablet norgestimat 2021-08- No [id number] 1{tbl} Take 1 Univers e-ethinyl 0-24 01-18 tablet by ity of estradioL 00:00: 00:00 mouth in [place] (ORTHO 00 :00 the Medical TRI-CYCLEN, morning. Bran ch 28,) 0.18/0.215/ 0.25 mg-35 mcg (28) tablet norgestimat 2021-08- No [id number] 1{tbl} Take 1 Univers e-ethinyl 0-24 01-18 tablet by ity of estradioL 00:00: 00:00 mouth in [place] (ORTHO 00 :00 the Medical TRI-CYCLEN, morning. Bran ch 28,) 0.18/0.215/ 0.25 mg-35 mcg (28) tablet Blood Yes Use as Univers Pressure 9-23 directed- ity of Test 00:00: Take blood [place] Kit-Large 00 pressure Medica l Kit in AM Branch prior to taking BP medication . If BP 130/80 or less, hold medication . Blood Yes Use as Univers Pressure 9-23 directed- ity of Test 00:00: Take blood [place] Kit-Large 00 pressure Medica l Kit in AM Branch prior to taking BP medication . If BP 130/80 or less, hold medication . Blood 2021- No Use as Univers Pressure -23 - directed- ity o f Test 00:00: 00:00 Take blood [place] Kit-Large 00 :00 pressure Medica l Kit in AM Branch prior to taking BP medication . If BP 130/80 or less, hold medication . aspirin 81 2021-0 Yes 81mg Take 81 mg U nivers mg EC - by mouth ity of tablet 00:00: in the [place] 00 morning. Medical Branch aspirin 81 2021-0 2021- No 81mg Take 81 mg Univers mg EC -22 -24 by mouth ity of tablet 00:00: 00:00 in the [place] 00 :00 morning. Medical Branch labetaloL 2021- Yes [id number] 100mg Take 1 U nivers 100 mg 9-16 tablet by ity of tablet 00:00: mouth [place] 00 every 12 Medical (twelve) Branch hours. labetaloL 2021-0 Yes [id number] 100mg Take 1 U nivers 100 mg 9-16 tablet by ity of tablet 00:00: mouth [place] 00 every 12 Medical (twelve) Branch hours. labetaloL 2021-0 Yes [id number] 100mg Take 1 U nivers 100 mg 9-16 tablet by ity of tablet 00:00: mouth [place] 00 every 12 Medical (twelve) Branch hours. labetaloL 2021-0 Yes [id number] 100mg Take 1 U nivers 100 mg 9-16 tablet by ity of tablet 00:00: mouth [place] 00 every 12 Medical (twelve) Branch hours. labetaloL 2021-0 2021- No [id number] 100mg Take 1 Univers 100 mg 9-16 10-24 tablet by ity of tablet 00:00: 00:00 mouth [place] 00 :00 every 12 Medical (twelve) Branch hours. ibuprofen 0 Yes 600mg 600 mg, Univ ers (IBU) 9-10 Oral, Q6H ity of tablet 600 17:00: ABX, First [place] mg 00 dose on Medical Sat Branch 05/06/22 at 1200, Until Discontinu ed, Routine ibuprofen 0 Yes 600mg 600 mg, Univ ers (IBU) 9-10 Oral, Q6H ity of tablet 600 17:00: ABX, First [place] mg 00 dose on Medical Sat Branch 05/06/22 at 1200, Until Discontinu ed, Routine NaCl 0.9% 0 2021- No 1000mL at 999 Uni vers (NS) bolus 9- 09-10 mL/hr, ity of infusion 07:15: 07:30 1,000 mL, [place] 1,000 mL 00 :00 IV Medical Infusion, Branch ONCE, 1 dose, On 05/06/22 at 0215, STAT acetaminoph 0 Yes [id number] 650mg Take 2 Univers en 325 mg 9-10 tablets by ity of tablet 00:00: mouth [place] 00 every 6 Medical (six) Branch hours as needed for Pain (scale 1-3) or Pain (scale 4-6). 2021-0 Yes [id number] 1{tbl} Take 1 Univers vitamin 9-10 tablet by ity of w/FA tablet 00:00: mouth in [place] 00 the Medical morning. Branch docusate 0 Yes [id number] 200mg Take 2 U nivers 100 mg 9-10 capsules ity of capsule 00:00: by mouth [place] 00 once daily Medical as needed Branch for Constipati on. ferrous 2021-0 Yes [id number] 325mg Take 1 Un loly sulfate 325 9-10 tablet by ity of mg (65 mg 00:00: [place] iron) 00 the Medical tablet morning Branch and 1 tablet in the evening. ibuprofen 0 Yes [id number] 600mg Take 1 Univers 600 mg 9-10 tablet by ity of tablet 00:00: mouth [place] 00 every 6 Medical (six) Branch hours as needed (Pain). Take with food or milk. acetaminoph 0 Yes [id number] 650mg Take 2 Univers en 325 mg 9-10 tablets by ity of tablet 00:00: mouth [place] 00 every 6 Medical (six) Branch hours as needed for Pain (scale 1-3) or Pain (scale 4-6). 0 Yes [id number] 1{tbl} Take 1 Univers vitamin 9-10 tablet by ity of w/FA tablet 00:00: mouth [place] 00 the Medical morning. Branch docusate 0 Yes [id number] 200mg Take 2 U nivers 100 mg 9-10 capsules ity of capsule 00:00: by mouth [place] 00 once daily Medical as needed Branch for Constipati on. ferrous 2021-0 Yes [id number] 325mg Take 1 Un loly sulfate 325 9-10 tablet by ity of mg (65 mg 00:00: [place] iron) 00 the Medical tablet morning Branch and 1 tablet in the evening. ibuprofen 2021-0 Yes [id number] 600mg Take 1 Univers 600 mg 9-10 tablet by ity of tablet 00:00: mouth [place] 00 every 6 Medical (six) Branch hours as needed (Pain). Take with food or milk. acetaminoph 0 Yes [id number] 650mg Take 2 Univers en 325 mg 9-10 tablets by ity of tablet 00:00: mouth [place] 00 every 6 Medical (six) Branch hours as needed for Pain (scale 1-3) or Pain (scale 4-6). 0 Yes [id number] 1{tbl} Take 1 Univers vitamin 9-10 tablet by ity of w/FA tablet 00:00: mouth in [place] 00 the Medical morning. Branch docusate 0 Yes [id number] 200mg Take 2 U nivers 100 mg 9-10 capsules ity of capsule 00:00: by mouth [place] 00 once daily Medical as needed Branch for Constipati on. ferrous 0 Yes [id number] 325mg Take 1 Un loly sulfate 325 9-10 tablet by ity of mg (65 mg 00:00: [place] iron) 00 the Medical tablet morning Branch and 1 tablet in the evening. ibuprofen 0 Yes [id number] 600mg Take 1 Univers 600 mg 9-10 tablet by ity of tablet 00:00: mouth [place] 00 every 6 Medical (six) Branch hours as needed (Pain). Take with food or milk. acetaminoph Yes [id number] 650mg Take 2 Univers en 325 mg 9-10 tablets by ity of tablet 00:00: mouth [place] 00 every 6 Medical (six) Branch hours as needed for Pain (scale 1-3) or Pain (scale 4-6). Yes [id number] 1{tbl} Take 1 Univers vitamin 9-10 tablet by ity of w/FA tablet 00:00: mouth [place] 00 the Medical morning. Branch docusate Yes [id number] 200mg Take 2 U nivers 100 mg 9-10 capsules ity of capsule 00:00: by mouth [place] 00 once daily Medical as needed Branch for Constipati on. ferrous 0 Yes [id number] 325mg Take 1 Un loly sulfate 325 9-10 tablet by ity of mg (65 mg 00:00: [place] iron) 00 the Medical tablet morning Branch and 1 tablet in the evening. ibuprofen 0 Yes [id number] 600mg Take 1 Univers 600 mg 9-10 tablet by ity of tablet 00:00: mouth [place] 00 every 6 Medical (six) Branch hours as needed (Pain). Take with food or milk. acetaminoph Yes [id number] 650mg Take 2 Univers en 325 mg 9-10 tablets by ity of tablet 00:00: mouth [place] 00 every 6 Medical (six) Branch hours as needed for Pain (scale 1-3) or Pain (scale 4-6). Yes [id number] 1{tbl} Take 1 Univers vitamin 9-10 tablet by ity of w/FA tablet 00:00: mouth [place] 00 the Medical morning. Branch docusate Yes [id number] 200mg Take 2 U nivers 100 mg 9-10 capsules ity of capsule 00:00: by mouth [place] 00 once daily Medical as needed Branch for Constipati on. ferrous Yes [id number] 325mg Take 1 Un loly sulfate 325 9-10 tablet by ity of mg (65 mg 00:00: [place] iron) 00 the Medical tablet morning Branch and 1 tablet in the evening. ibuprofen Yes [id number] 600mg Take 1 Univers 600 mg 9-10 tablet by ity of tablet 00:00: mouth [place] 00 every 6 Medical (six) Branch hours as needed (Pain). Take with food or milk. VITAFOL Yes 1{capsu Take 1 Unive rs ULTRA 29 mg 9-10 le} capsule by it y of iron- 1 00:00: mouth [place] mg-200 mg 00 every Medical Cap morning. Branch acetaminoph 2021- No [id number] 650mg Take 2 Univers en 325 mg 9-10 10-24 tablets by ity of tablet 00:00: 00:00 mouth [place] 00 :00 every 6 Medical (six) Branch hours as needed for Pain (scale 1-3) or Pain (scale 4-6). 2021- No [id number] 1{tbl} Take 1 Univers vitamin 9-10 10-24 tablet by ity of w/FA tablet 00:00: 00:00 mouth [place] 00 :00 the Medical morning. Branch docusate 2021- No [id number] 200mg Take 2 Univers 100 mg 9-10 10-24 capsules ity of capsule 00:00: 00:00 by mouth [place] 00 :00 once daily Medical as needed Branch for Constipati on. ferrous 2021- No [id number] 325mg Take 1 U nivers sulfate 325 9-10 10-24 tablet by it y of mg (65 mg 00:00: 00:00 mouth in [place] iron) 00 :00 the Medical tablet morning Branch and 1 tablet in the evening. ibuprofen 2021- No [id number] 600mg Take 1 Univers 600 mg 9-10 10-24 tablet by ity of tablet 00:00: 00:00 mouth [place] 00 :00 every 6 Medical (six) Branch hours as needed (Pain). Take with food or milk. VITAFOL 2021- No 1{capsu Take 1 Univ ers ULTRA 29 mg 9-10 10-24 le} capsule by i ty of iron- 1 00:00: 00:00 mouth [place] mg-200 mg 00 :00 every Medical Cap morning. Branch enoxaparin 2021- No [id number] 40mg inject 0.4 Univers 40 mg/0.4 9-10 10-11 mL under ity o f mL 00:00: 04:59 the skin [place] injection 00 :00 every 24 Medica l (twenty-fo Branch ur) hours for 30 days. enoxaparin 2021- No [id number] 40mg inject 0.4 Univers 40 mg/0.4 9-10 10-11 mL under ity o f mL 00:00: 04:59 the skin [place] injection 00 :00 every 24 Medica l (twenty-fo Branch ur) hours for 30 days. enoxaparin 2021- No [id number] 40mg inject 0.4 Univers 40 mg/0.4 9-10 10-11 mL under ity o f mL 00:00: 04:59 the skin [place] injection 00 :00 every 24 Medica l (twenty-fo Branch ur) hours for 30 days. enoxaparin 2021- No [id number] 40mg inject 0.4 Univers 40 mg/0.4 9-10 10-11 mL under ity o f mL 00:00: 04:59 the skin [place] injection 00 :00 every 24 Medica l (twenty-fo Branch ur) hours for 30 days. enoxaparin 2021- No [id number] 40mg inject 0.4 Univers 40 mg/0.4 9-10 10-11 mL under ity o f mL 00:00: 04:59 the skin [place] injection 00 :00 every 24 Medica l (twenty-fo Branch ur) hours for 30 days. HYDROcodone 2021- No [id number] 1{tbl} Take 1 U nivers -acetaminop 9-10 09-18 tablet by it y of hen 5-325 00:00: 04:59 mouth [place] mg tablet 00 :00 every 6 Medical (six) Branch hours as needed for Pain (scale 7-10) for up to 7 days. Indication s: acute pain HYDROcodone 2021- No [id number] 1{tbl} Take 1 U nivers -acetaminop 9-10 09-18 tablet by it y of hen 5-325 00:00: 04:59 mouth [place] mg tablet 00 :00 every 6 Medical (six) Branch hours as needed for Pain (scale 7-10) for up to 7 days. Indication s: acute pain HYDROcodone 2021- No [id number] 1{tbl} Take 1 U nivers -acetaminop 9-10 09-18 tablet by it y of hen 5-325 00:00: 04:59 mouth [place] mg tablet 00 :00 every 6 Medical (six) Branch hours as needed for Pain (scale 7-10) for up to 7 days. Indication s: acute pain gabapentin 2021- No [id number] 300mg Take 1 Univers 300 mg 05-06 capsule by ity of capsule 00:00: 04:59 mouth in [place] 00 :00 the Medical morning Branch and 1 capsule at noon and 1 capsule in the evening. Do all this for 5 days. NaCl 0.9% No 1000mL at 999 Uni vers (NS) bolus 05-0510 mL/hr, ity of infusion 23:16: 00:42 1,000 mL, [place] 1,000 mL 00 :06 IV Medical Infusion, Branch ONCE, 1 dose, On Sun05/05/22 at 1830, STAT enoxaparin Yes 40mg 40 mg, Unive rs (LOVENOX) 05-05 Subcutaneo ity of injection 17:00: us, Q24H [place] 40 mg 00 ABX, First Medical dose on Branch Sun05/05/22 at 1200, Until Discontinu ed, Routine enoxaparin 0 Yes 40mg 40 mg, Unive rs (LOVENOX) 05-05 Subcutaneo ity of injection 17:00: us, Q24H [place] 40 mg 00 ABX, First Medical dose on Branch Sun05/05/22 at 1200, Until Discontinu ed, Routine ketorolac 2021-0 2021- No 30mg 30 mg, Unive rs (TORADOL) 05-05 Slow IV ity of injection 17:00: 16:59 [place], Q6H [place] 30 mg 00 :00 ABX, 4 Medical doses, Branch First dose on Sun05/05/22 at 1200, Last dose on Sun05/06/22 at 0600, Routine ketorolac 2021-2021- No 30mg 30 mg, Unive rs (TORADOL) 05-05 Slow IV ity of injection 17:00: 10:49 [place], Q6H [place] 30 mg 00 :00 ABX, 4 Medical doses, Branch First dose on Sun05/05/22 at 1200, Last dose on Sun05/06/22 at 0600, Routine lactated 2021-0 Yes 1000mL at 200 Unive rs ringers IV 05-05 mL/hr, ity of infusion 16:30: 1,000 mL, [place] 1,000 mL 00 IV Medical Infusion, Branch CONTINUOUS , Starting on Sun05/05/22 at 1130, Until Discontinu ed, Routine lactated 2021-0 Yes 1000mL at 200 Unive rs ringers IV 05-05 mL/hr, ity of infusion 16:30: 1,000 mL, [place] 1,000 mL 00 IV Medical Infusion, Branch CONTINUOUS , Starting on Sun05/05/22 at 1130, Until Discontinu ed, Routine NaCl 0.9% 2021- No 1000mL at 999 Uni vers (NS) bolus 05-05 mL/hr, ity of infusion 15:24: 16:32 1,000 mL, [place] 1,000 mL 00 :00 IV Medical Infusion, Branch ONCE, 1 dose, On Sun05/05/22 at 1030, STAT acetaminoph Yes 650mg 650 mg, Un loly en 05-05 Oral, Q6H ity of (TYLENOL) 13:00: ABX, First [place] tablet 650 00 dose on Medica l mg 05/05/22 Branch at 0800, Until Discontinu ed, Routine gabapentin 2021-0 Yes 300mg 300 mg, Uni vers (NEURONTIN) 05-05 Oral, TID, it y of capsule 300 13:00: First dose [place] mg 00 on Fri Medical 05/05/22 at Branch 0800, Until Discontinu ed, Routine acetaminoph 2021-0 Yes 650mg 650 mg, Un loly en 05-05 Oral, Q6H ity of (TYLENOL) 13:00: ABX, First [place] tablet 650 00 dose on Medica l mg Sun05/05/22 Branch at 0800, Until Discontinu ed, Routine gabapentin 2021-0 Yes 300mg 300 mg, Uni vers (NEURONTIN) 05-05 Oral, TID, it y of capsule 300 13:00: First dose [place] mg 00 on [facility] Medical 05/05/22 at Branch 0800, Until Discontinu ed, Routine acetaminoph 2021-0 202- No 1000mg 1,000 mg, Univers en ADULT 05-05- IV ity of (OFIRMEV) 06:00: 06:17 Infusion, [place] injection 00 :[address] [place] [address] 1,000 mg mL/hr [place] Administer over 15 Minutes, ONCE TOMORROW, 1 dose, On Sun05/05/22 at 0100, Routine
Indicatio n: Perioperat ramón Patient HYDROcodone 2021-0 Yes 1{tbl} 1 tablet, Univers -acetaminop 05-05 Oral, ity of hen (NORCO 05:00: Q6HPRN, [place] 5) 5-325 mg 00 Starting Medi aleksandr tablet 1 on Fri Branch tablet 05/05/22 at 0000, Until Discontinu ed, Routine, Pain (scale 7-10) HYDROcodone 2021-0 Yes 1{tbl} 1 tablet, Univers -acetaminop 05-05 Oral, ity of hen (NORCO 05:00: Q6HPRN, [place] 5) 5-325 mg 00 Starting Medi aleksandr tablet 1 on Fri Branch tablet 05/05/22 at 0000, Until Discontinu ed, Routine, Pain (scale 7-10) lactated 2021- No 1000mL at 125 [facility] ers ringers IV 05-05 mL/hr, ity of infusion 01:30: 04:11 1,000 mL, [place] 1,000 mL 00 :00 IV Medical Infusion, Branch ONCE, 1 dose, On [place] 05/04/22 at 2030, Routine rho(D) Yes 300ug 300 mcg, [facility] immune 05-05 Intramuscu ity of globulin 01:18: lar, ONCE, [place] (RHOGAM) 44 For 1 Medical syringe 300 dose, Branch mcg Conditiona l, Routine rho(D) Yes 300ug 300 mcg, [facility] s immune 05-05 Intramuscu ity of globulin 01:18: lar, ONCE, [place] (RHOGAM) 44 For 1 Medical syringe 300 dose, Branch mcg Conditiona l, Routine diphenhydrA Yes 25mg 25 mg, [facility] MINE 05-05 Slow IV ity of (BENADRYL) 01:18: Push, [place] injection 39 Q6HPRN, Medical 25 mg Starting Branch on [place] 05/04/22 at 2018, Until Discontinu ed, Routine, Itching diphenhydrA Yes 25mg 25 mg, [facility] 05-05 Oral, ity of (BENADRYL) 01:18: [facility] Starting Medica l mg on [place] Branch 05/04/22 at 2018, Until Discontinu ed, Routine, Sleep, Itching ondansetron Yes 4mg 4 mg, Slow Univers (ZOFRAN 05-05 IV Push, ity of (PF)) 01:18: Q8HPRN, [place] injection 4 39 Starting Medi aleksandr mg on [place] Branch 05/04/22 at 2018, Until Discontinu ed, Routine, Nausea and Vomiting (N/V) bisacodyL Yes 10mg 10 mg, [facility] (DULCOLAX) 05-05 Rectal, ity of suppository 01:18: QDAILYPRN, [place] 10 mg 39 Starting Medical on [place] Branch 05/04/22 at 2018, Until Discontinu ed, Routine, Constipati on simethicone 2022-0 Yes 160mg 160 mg, Un loly (GAS RELIEF 05-05 Oral, ity of (SIMETHICON 01:18: PC+HSPRN, [place] E)) 39 Starting Medical chewable on [place] Branch tablet 160 05/04/22 at mg 2017, Until Discontinu ed, Routine, Gas docusate 2021-0 Yes 200mg 200 mg, Unive rs (COLACE) 05-05 Oral, ity of capsule 200 01:18: QDAILYPRN, [place] mg 39 Starting Medical on [place] Branch 05/04/22 at 2018, Until Discontinu ed, Routine, Constipati on magnesium 2021-0 Yes 30mL 30 mL, Univer s hydroxide 05-05 Oral, ity of (MILK OF 01:18: QDAILYPRN, [place] MAGNESIA) 39 Starting Medica l 400 mg/5 mL on [facility] Branch suspension 05/04/22 at 30 mL 2017, Until Discontinu ed, Routine, Constipati on diphenhydrA 2021-0 Yes 25mg 25 mg, Univ ers MINE 05-05 Slow IV ity of (BENADRYL) 01:18: Push, [place] injection 39 Q6HPRN, Medical 25 mg Starting Branch on [place] 05/04/22 at 2018, Until Discontinu ed, Routine, Itching diphenhydrA 2021-0 Yes 25mg 25 mg, Univ ers MINE 05-05 Oral, ity of (BENADRYL) 01:18: Q6HPRN, [place] tablet 25 39 Starting Medica l mg on [facility] Branch 05/04/22 at 2018, Until Discontinu ed, Routine, Sleep, Itching ondansetron 2021-0 Yes 4mg 4 mg, Slow Univers (ZOFRAN 05-05 IV Push, ity of (PF)) 01:18: Q8HPRN, [place] injection 4 39 Starting Medi aleksandr mg on [place] Branch 05/04/22 at 2018, Until Discontinu ed, Routine, Nausea and Vomiting (N/V) bisacodyL 2021-0 Yes 10mg 10 mg, Univer s (DULCOLAX) 05-05 Rectal, ity of suppository 01:18: QDAILYPRN, [place] 10 mg 39 Starting Medical on [place] Branch 05/04/22 at 2018, Until Discontinu ed, Routine, Constipati on simethicone 2021-0 Yes 160mg 160 mg, Un loly (GAS RELIEF 05-05 Oral, ity of (SIMETHICON 01:18: PC+HSPRN, [place] E)) 39 Starting Medical chewable on [place] Branch tablet 160 05/04/22 at mg 2018, Until Discontinu ed, Routine, Gas docusate 0 Yes 200mg 200 mg, Unive rs (COLACE) 05-05 Oral, ity of capsule 200 01:18: QDAILYPRN, [place] mg 39 Starting Medical on [place] Branch 05/04/22 at 2018, Until Discontinu ed, Routine, Constipati on magnesium 0 Yes 30mL 30 mL, Univer s hydroxide 05-05 Oral, ity of (MILK OF 01:18: QDAILYPRN, [place] as MAGNESIA) 39 Starting Medica l 400 mg/5 mL on [place] Branch suspension 05/04/22 at 30 mL 2018, Until Discontinu ed, Routine, Constipati on lactated 2021-0 2021- No 1000mL at 125 [facility] ers ringers IV 05-05 mL/hr, ity of infusion 01:18: 15:38 1,000 mL, [place] as 1,000 mL 39 :00 IV Medical Infusion, Branch PRN, 1 dose, Starting on Sun05/04/22 at 2018, Until Sun05/05/22 at 1038, Routine sodium 2021-0 Yes PRN, Univers chloride 05-05 Starting ity of 0.9 % 00:08: on Priscilla [place] irrigation 00 05/04/22 at Medi aleksandr solution 1908, Branch Until Discontinu ed, Intra-op sodium 2021-0 Yes PRN, Univers chloride 05-05 Starting ity of 0.9 % 00:08: on [place] irrigation 00 05/04/22 at Medi aleksandr solution 1908, Branch Until Discontinu ed, Intra-op mupirocin 2021-0 Yes Intra-op [facility] ers (BACTROBAN 05-05 ity of OINT) 2 % 00:07: [place] skin 00 Medical ointment Branch mupirocin 2021-0 Yes Intra-op [facility] ers (BACTROBAN 05-05 ity of OINT) 2 % 00:07: [place] skin 00 Medical ointment Branch ceFAZolin 2021- No 3000mg 3 g (3,000 Univers (ANCEF) 3 g 05-04 mg), IV ity of in NaCl 19:41: 23:11 Piggyback, [place] as 0.9% (NS) 57 :00 O.R. Medical 50 mL HOLDING Branch piggyback ONCE, 1 dose, Starting on Priscilla 05/04/22 at 1441, Until [place] 05/04/22 at 2359, Administer over 30 Minutes, 50 mL
Reas on for Anti-Infec tive: Surgical Prophylaxi s
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
Duration of therapy: within 24 hours of surgery betamethaso No 12mg 12 mg, Uni vers ne acet,sod 05-04 Intramuscu i ty of phos 18:37: 18:49 lar, ONCE, [place] (CELESTONE 00 :00 1 dose, On Med ical SOLUSPAN) 6 Priscilla 05/04/22 Br anch mg/mL at 1345, injection Routine 12 mg D5W-LR IV No 1000mL at 1-125 U nivers infusion 05-04 mL/hr, IV ity o f 1,000 mL 18:21: 01:18 Infusion, [place] as 15 :42 TITRATE, Medical Starting Branch on Priscilla 05/04/22 at 1321, Until [place] 05/04/22 at 2018, Routine sodium 2021- No 30mL 30 mL, Univers citrate-cit 05-04 Oral, ity of fawn acid 18:21: 22:28 PRE-PROCED [place] (BICITRA) 15 :00 URE ONCE, Medic al 500-334 1 dose, Branch mg/5 mL Starting solution 30 on [place]isc[place] mL 05/04/22 at 1321, Until Discontinu ed, Routine, Surgery/Pr ocedure azithromyci Yes [id number] 250mg Take 1 Univers n 04-28 tablet by ity of (ZITHROMAX 00:00: mouth in [place] Z-ALEXA) 250 00 the Medical mg tablet morning. Branch azithromyci Yes [id number] 250mg Take 1 Univers n 9-02 tablet by ity of (ZITHROMAX 00:00: mouth in [place] Z-ALEXA) 250 00 the Medical mg tablet morning. Branch azithromyci 2- No [id number] 250mg Take 1 [facility] 04-28 09-10 tablet by ity of (ZITHROMAX 00:00: 00:00 [place] Z-ALEXA) 250 00 :00 the Medical mg tablet morning. Branch neomycin-po 2021-0 Yes INSTILL 4 U nivers lymyxin-hyd 8-29 DROPS IN ity of rocortisone 00:00: AFFECTED [place] 3.5-,000- 00 EAR(S) Medica l 1 EVERY 6 Branch mg/mL-unit/ HOURS mL-% otic susp neomycin-po 2021-0 Yes INSTILL 4 U nivers lymyxin-hyd 8-29 DROPS IN ity of rocortisone 00:00: AFFECTED [place] 3.5-10,000- 00 EAR(S) Medica l 1 EVERY 6 Branch mg/mL-unit/ HOURS mL-% otic susp neomycin-po 2-0 Yes INSTILL 4 U nivers lymyxin-hyd 8-29 DROPS IN ity of rocortisone 00:00: AFFECTED [place] 3.5-,000- 00 EAR(S) Medica l 1 EVERY 6 Branch mg/mL-unit/ HOURS mL-% otic susp neomycin-po 2022-0 Yes INSTILL 4 U nivers lymyxin-hyd 8-29 DROPS IN ity of rocortisone 00:00: AFFECTED [place] 3.5-10,000- 00 EAR(S) Medica l 1 EVERY 6 Branch mg/mL-unit/ HOURS mL-% otic susp neomycin-po 2022-0 Yes INSTILL 4 U nivers lymyxin-hyd 8-29 DROPS IN ity of rocortisone 00:00: AFFECTED [place] 3.5-10,000- 00 EAR(S) Medica l 1 EVERY 6 Branch mg/mL-unit/ HOURS mL-% otic susp neomycin-po 2022-0 Yes INSTILL 4 U nivers lymyxin-hyd 8-29 DROPS IN ity of rocortisone 00:00: AFFECTED [place] 3.5-10,000- 00 EAR(S) Medica l 1 EVERY 6 Branch mg/mL-unit/ HOURS mL-% otic susp neomycin-po Yes INSTILL 4 U nivers lymyxin-hyd 8-29 DROPS IN ity of rocortisone 00:00: [place]FF[place]ED [place] 3.5-10,000- 00 EAR(S) Medica l 1 EVERY 6 Branch mg/mL-unit/ HOURS mL-% otic susp neomycin-po 0 2021- No INSTILL 4 Univers lymyxin-hyd 8-29 10-24 DROPS IN ity of rocortisone 00:00: 00:00 AFFECTED [place] 3.5-10,000- 00 :00 EAR(S) Medica l 1 EVERY 6 Branch mg/mL-unit/ HOURS mL-% otic susp amoxicillin 2021- No TAKE 1 Uni vers -clavulanat 8-29 -08 TABLET BY it y of e 875-125 00:00: 00:00 MOUTH [place] mg per 00 :00 EVERY 12 Medical tablet HOURS FOR Branch 10 DAYS aspirin 81 2021-0 Yes [id number] 81mg Take 1 Univers mg EC 8-12 tablet by ity of tablet 00:00: mouth in [place] 00 the Medical morning. Branch PNV 0 Yes [id number] 1{each} Take 1 Uni vers 112-iron-FA 8-12 Each by ity o f -om-3s-dha- 00:00: mouth [place] epa 00 daily. Medical (VITAFOL Branch GUMMIES) 3.33 mg iron- 0.33 mg Chew aspirin 81 2021-0 Yes [id number] 81mg Take 1 Univers mg EC 8-12 tablet by ity of tablet 00:00: mouth in [place] 00 the Medical morning. Branch PNV 0 Yes [id number] 1{each} Take 1 Uni vers 112-iron-FA 8-12 Each by ity o f -om-3s-dha- 00:00: mouth [place] epa 00 daily. Medical (VITAFOL Branch GUMMIES) 3.33 mg iron- 0.33 mg Chew aspirin 81 2021-0 2021- No [id number] 81mg Take 1 Univers mg EC 8-12 09-10 tablet by ity of tablet 00:00: 00:00 mouth in [place] 00 :00 the Medical morning. Branch PNV 2021-0 2021- No [id number] 1{each} Take 1 Un loly 112-iron-FA 8 09-10 Each by ity of -om-3s-dha- 00:00: 00:00 [place] epa 00 :00 daily. Medical (VITAFOL Branch GUMMIES) 3.33 mg iron- 0.33 mg Chew Immunizations Ordered Immunization Filled Immunization Date Status Commen ts Source Name Name [facility] 2022-03-24 Completed University of 00:00:00 [facility] 2022-03-24 Completed University of 00:00:00 [facility] 2022-03-24 Completed University of 00:00:00 [facility] 2022-03-24 Completed University of 00:00:00 [facility] 2022-03-24 Completed University of 00:00:00 [facility] 2022-03-24 Completed University of 00:00:00 [facility] 2022-03-24 Completed University of 00:00:00 [facility] 2022-03-24 Completed University of 00:00:00 [facility] 2022-03-24 Completed University of 00:00:00 [facility] 2022-03-24 Completed University of 00:00:00 [facility] 2022-03-24 Completed [facility] Com[facility] University of 00:00:00 [facility] HPV 2018-03-25 Completed University of 00:00:00 [facility] HPV 2018-03-25 Completed University of 00:00:00 [facility] HPV 2018-03-25 Completed University of 00:00:00 [facility] HPV 2018-03-25 Completed University of 00:00:00 [facility] Meningococcal 2014-04-09 Completed University of Polysaccharide 00:00:00 [facility] aleksandr (groups A, C, Y and Branc h W-135) conjugate vaccine (MCV4P) TD 2014-04-09 Completed University of 00:00:00 [facility] Varicella 2014-04-09 Completed University of (varivax)(chicken 00:00:00 [place] M edical pox) Branch Meningococcal 2014-04-09 Completed University of Polysaccharide 00:00:00 [place] Medi aleksandr (groups A, C, Y and Branc h W-135) conjugate vaccine (MCV4P) TDAP 2014-04-09 Completed University of 00:00:00 [facility] Varicella 2014-04-09 Completed University of (varivax)(chicken 00:00:00 [place] M edical pox) Branch Meningococcal 2014-04-09 Completed University of Polysaccharide 00:00:00 [place] Medi alekasndr (groups A, C, Y and Branc h W-135) conjugate vaccine (MCV4P) TDAP 2014-04-09 Completed University of 00:00:00 [facility] Varicella 2014-04-09 Completed University of (varivax)(chicken 00:00:00 [place] M edical pox) Branch Meningococcal 2014-04-09 Completed University of Polysaccharide 00:00:00 [place] Medi aleksandr (groups A, C, Y and Branc h W-135) conjugate vaccine (MCV4P) TDAP 2014-04-09 Completed University of 00:00:00 [facility] Varicella 2014-04-09 Completed University of (varivax)(chicken 00:00:00 [facility] [place] edical pox) Branch MMR 2007-05-27 Completed University of 00:00:00 [facility] MMR 2007-05-27 Completed University of 00:00:00 [facility] MMR 2007-05-27 Completed University of 00:00:00 [facility] MMR 2007-05-27 Completed University of 00:00:00 [facility] DTaP, Unspecified 2007-04-02 Completed Univers ity of Formulation 00:00:00 [facility] Proquad 2007-04-02 Completed University of (MMR/VARICELLA) 00:00:00 [facility] IPV 2007-04-02 Completed University of 00:00:00 [facility] DTaP, Unspecified 2007-04-02 Completed Univers ity of Formulation 00:00:00 [facility] Proquad 2007-04-02 Completed University of (MMR/VARICELLA) 00:00:00 [facility] IPV 2007-04-02 Completed University of 00:00:00 [facility] DTaP, Unspecified 2007-04-02 Completed Univers ity of Formulation 00:00:00 [facility] Proquad 2007-04-02 Completed University of (MMR/VARICELLA) 00:00:00 [facility] Branch IPV 2007-04-02 Completed University of 00:00:00 [facility] DTaP, Unspecified 2007-04-02 Completed Univers ity of Formulation 00:00:00 [facility] Proquad 2007-04-02 Completed University of (MMR/VARICELLA) 00:00:00 [facility] Branch IPV 2007-04-02 Completed University of 00:00:00 [facility] DTaP, Unspecified 2001 Completed Univers ity of Formulation 00:00:00 [facility] Hep B, Adol or Pedi 2001 Completed Unive rsity of Dosage 00:00:00 [facility] Hib-HbOC 2001 Completed University of 00:00:00 [facility] IPV 2001 Completed University of 00:00:00 [facility] DTaP, Unspecified 2001 Completed Univers ity of Formulation 00:00:00 [facility] Hep B, Adol or Pedi 2001 Completed Unive rsity of Dosage 00:00:00 [facility] Hib-HbOC 2001 Completed University of 00:00:00 [facility] IPV 2001 Completed University of 00:00:00 [facility] DTaP, Unspecified 2001 Completed Univers ity of Formulation 00:00:00 [facility] Hep B, Adol or Pedi 2001 Completed Unive rsity of Dosage 00:00:00 [facility] Hib-HbOC 2001 Completed University of 00:00:00 [facility] IPV 2001 Completed University of 00:00:00 [facility] DTaP, Unspecified 2001 Completed Univers ity of Formulation 00:00:00 [facility] Hep B, Adol or Pedi 2001 Completed Unive rsity of Dosage 00:00:00 [facility] Hib-HbOC 2001 Completed University of 00:00:00 [facility] IPV 2001 Completed University of 00:00:00 [place] [facility] DTaP, Unspecified 2001 Completed Univers ity of Formulation 00:00:00 [facility] Hib-HbOC 2001 Completed University of 00:00:00 [facility] IPV 2001 Completed University of 00:00:00 [facility] DTaP, Unspecified 2001 Completed Univers ity of Formulation 00:00:00 [facility] Hib-HbOC 2001 Completed University of 00:00:00 [facility] IPV 2001 Completed University of 00:00:00 [facility] DTaP, Unspecified 2001 Completed Univers ity of Formulation 00:00:00 [facility] Hib-HbOC 2001 Completed University of 00:00:00 [facility] IPV 2001 Completed University of 00:00:00 [facility] DTaP, Unspecified 2001 Completed Univers ity of Formulation 00:00:00 [facility] Hib-HbOC 2001 Completed University of 00:00:00 [facility] IPV 2001 Completed University of 00:00:00 [facility] DTaP, Unspecified 2001 Completed Univers ity of Formulation 00:00:00 [facility] Hep B, Adol or Pedi 2001 Completed Unive rsity of Dosage 00:00:00 [facility] Hib-HbOC 2001 Completed University of 00:00:00 [facility] IPV 2001 Completed University of 00:00:00 [facility] DTaP, Unspecified 2001 Completed Univers ity of Formulation 00:00:00 [facility] Hep B, Adol or Pedi 2001 Completed Unive rsity of Dosage 00:00:00 [facility] Hib-HbOC 2001 Completed University of 00:00:00 [facility] IPV 2001 Completed University of 00:00:00 [facility] Branch DTaP, Unspecified 2001 Completed Univers ity of Formulation 00:00:00 [facility] Hep B, Adol or Pedi 2001 Completed Unive rsity of Dosage 00:00:00 [facility] Hib-HbOC 2001 Completed University of 00:00:00 [facility] IPV 2001 Completed University of 00:00:00 [facility] DTaP, Unspecified 2001 Completed Univers ity of Formulation 00:00:00 [facility] Hep B, Adol or Pedi 2001 Completed Unive rsity of Dosage 00:00:00 [facility] Hib-HbOC 2001 Completed University of 00:00:00 [facility] IPV 2001 Completed University of 00:00:00 [facility] Hep B, Adol or Pedi 2001 Completed Unive rsity of Dosage 00:00:00 [facility] Hep B, Adol or Pedi 2001 Completed Unive rsity of Dosage 00:00:00 [facility] Hep B, Adol or Pedi 2001 Completed Unive rsity of Dosage 00:00:00 [facility] Hep B, Adol or Pedi 2001 Completed Unive rsity of Dosage 00:00:00 [facility] Vital Signs Vital Name Observation Time Observation Value Comments Source Systolic blood 2022-10-02 16:28:00 135 mm[Hg] Univer sity of pressure [facility] Diastolic blood 2022-10-02 16:28:00 91 mm[Hg] Unive rsity of pressure [facility] Heart rate 2022-10-02 16:28:00 75 /min [facility] Body temperature 2022-10-02 16:28:00 36.72 [facility] 2022-10-02 16:28:00 16 /min [facility] Body height 2022-10-02 16:28:00 154.9 cm [facility] Body weight 2022-10-02 16:28:00 90.719 kg [facility] BMI 2022-10-02 16:28:00 37.79 kg/m2 [facility] Oxygen saturation in 2022-10-02 16:28:00 100 /min [facility] Arterial blood by [facility] Pulse oximetry Branch Systolic blood 2022-09-13 15:46:00 124 mm[Hg] Univer sity of pressure [facility] Diastolic blood 2022-09-13 15:46:00 84 mm[Hg] Unive rsity of pressure [place] [facility] Heart rate 2022-09-13 15:46:00 79 /min Universi ty of [place] [facility] Respiratory rate 2022-09-13 15:46:00 18 /min Univ ersity of [place] [facility] Body height 2022-09-13 15:46:00 154.9 cm Universi ty of [place] [facility] Body weight 2022-09-13 15:46:00 91.173 kg Universi ty of [place] [facility] BMI 2022-09-13 15:46:00 37.98 kg/m2 Universi ty of [place] [facility] Systolic blood 2022-06-19 18:35:00 127 mm[Hg] Univer sity of pressure [place] [facility] Diastolic blood 2022-06-19 18:35:00 84 mm[Hg] Unive rsity of pressure [place] [facility] Heart rate 2022-06-19 18:35:00 88 /min Universi ty of [place] [facility] Body temperature 2022-06-19 18:35:00 36.61 Mary Univ ersity of [place] [facility] Respiratory rate 2022-06-19 18:35:00 16 /min Univ ersity of [place] [facility] Body height 2022-06-19 18:35:00 157.5 cm Universi ty of [place] [facility] Body weight 2022-06-19 18:35:00 96.253 kg Universi ty of [place] [facility] BMI 2022-06-19 18:35:00 38.81 kg/m2 Universi ty of [place] [facility] Oxygen saturation in 2022-06-19 18:35:00 99 /min University of Arterial blood by [facility] Pulse oximetry Branch Systolic blood 2022-05-29 18:02:00 122 mm[Hg] Univer sity of pressure [place] [facility] Diastolic blood 2022-05-29 18:02:00 84 mm[Hg] Unive rsity of pressure [place] [facility] Heart rate 2022-05-29 18:02:00 79 /min Universi ty of [place] [facility] Body temperature 2022-05-29 18:02:00 36.78 Mary Univ ersity of [place] [facility] Respiratory rate 2022-05-29 18:02:00 16 /min Univ ersity of [place] [facility] Body height 2022-05-29 18:02:00 157.5 cm Universi ty of [place] [facility] Body weight 2022-05-29 18:02:00 98.113 kg Universi ty of [place] [facility] BMI 2022-05-29 18:02:00 39.56 kg/m2 Universi ty of [place] [facility] Oxygen saturation in 2022-05-29 18:02:00 99 /min University of Arterial blood by [facility] Pulse oximetry Branch Systolic blood 2022-05-19 14:46:00 120 mm[Hg] Univer sity of pressure [place] [facility] Diastolic blood 2022-05-19 14:46:00 83 mm[Hg] Unive rsity of pressure [place] [facility] Systolic blood 2022-05-12 18:34:00 156 mm[Hg] Univer sity of pressure [place] [facility] Diastolic blood 2022-05-12 18:34:00 88 mm[Hg] Unive rsity of pressure [place] [facility] Heart rate 2022-05-12 18:34:00 98 /min Universi ty of [place] [facility] Body temperature 2022-05-12 18:34:00 36.78 Mary Univ ersity of [place] [facility] Respiratory rate 2022-05-12 18:34:00 18 /min Univ ersity of [place] [facility] Body height 2022-05-12 18:34:00 152.4 cm Universi ty of [place] [facility] Body weight 2022-05-12 18:34:00 110.088 kg Universi ty of [place] [facility] BMI 2022-05-12 18:34:00 47.40 kg/m2 Universi ty [facility] [place] [facility] Systolic blood 2022-05-06 23:10:00 141 mm[Hg] Univer sity of pressure [place] [facility] Diastolic blood 2022-05-06 23:10:00 85 mm[Hg] Unive rsity of pressure [place] [facility] Heart rate 2022-05-06 23:10:00 79 /min Universi ty of [place] [facility] Body temperature 2022-05-06 23:10:00 36.56 Mary Univ ersity of [place] [facility] Respiratory rate 2022-05-06 23:10:00 18 /min Univ ersity of [place] [facility] Oxygen saturation in 2022-05-06 23:10:00 100 /min University of Arterial blood by [facility] Pulse oximetry Branch Body height 2022-05-04 21:48:00 152.4 cm Universi ty of [place] [facility] Body weight 2022-05-04 21:48:00 118.57 kg Universi ty of [facility] BMI 2022-05-04 21:48:00 51.05 kg/m2 Universi ty of [facility] Systolic blood 2022-05-04 14:19:00 124 mm[Hg] Univer sity of [facility] Diastolic blood 2022-05-04 14:19:00 88 mm[Hg] Unive rsity of [facility] Heart rate 2022-05-04 14:19:00 88 /min Universi ty [facility] Body temperature 2022-05-04 14:19:00 36.72 Mary [facility] Respiratory rate 2022-05-04 14:19:00 16 /min [facility] Body height 2022-05-04 14:19:00 152.4 cm Universi ty [facility] Body weight 2022-05-04 14:19:00 118.797 kg Universi ty [facility] BMI 2022-05-04 14:19:00 51.15 kg/m2 Universi [facility] Oxygen saturation in 2022-05-04 14:19:00 98 /min [facility] Arterial blood by [facility] Pulse oximetry Branch Procedures Procedure Date / Time Performing Clinician Source Performed POCT TEST 2022-06-19 00:00:00 Marquez Varner [facility] URINALYSIS 2022-05-05 13:55:00 Earl Sierra [facility] PROTEIN CREAT RATIO URINE 2022-05-05 13:55:00 [facility] 2022-[facility]-05 13:55:00 Earl Sierra [facility] PROTEIN CREAT RATIO URINE 2022-05-05 13:55:00 Earl Sierra [facility] CBC WITH DIFF 2022-05-05 09:10:00 Earl Sierra [facility] CBC WITH DIFF 2022-05-05 09:10:00 Earl Sierra [facility] VENOUS CORD GAS 2022-05-04 23:57:00 Earl Sierra [facility] VENOUS CORD GAS 2022-05-04 23:57:00 Earl Sierra [facility] SECTION 2022-05-04 22:48:00 Earl Sierra [facility] SECTION 2022-05-04 22:48:00 Earl Sierra [facility] SGOT (ASPARTATE AMINO 2022-05-04 19:30:00 Earl Sierra [facility] TRANSFER) Medical Branch CREATININE 2022-05-04 19:30:00 Earl Sierra [facility] ALANINE AMINO 2022-05-04 19:30:00 Earl Sierra [facility] TRANSFERASE[facility] Medical Branch URIC ACID 2022-05-04 19:30:00 Earl Sierra [facility] CBC WITH DIFF 2022-05-04 19:30:00 Earl Sierra [facility] HEPATITIS B SURFACE 2022-05-04 19:30:00 Rigo Earl Scot [facility] ANTIGEN [facility] ADC OR SAMMY ONLY - RPR 2022-05-04 19:30:00 [facility]-AB WITH REFLEX 2022-05-04 19:30:00 Earl Sierra [facility] SGOT (ASPARTATE AMINO 2022-05-04 19:30:00 Earl Sierra [facility] TRANSFER) Medical Branch CREATININE 2022-05-04 19:30:00 Earl Sierra [facility] ALANINE AMINO 2022-05-04 19:30:00 Earl Sierra [facility] TRANSFERASE([facility] Medical Branch URIC ACID 2022-05-04 19:30:00 Earl Sierra [facility] CBC WITH DIFF 2022-05-04 19:30:00 Earl Sierra [facility] HEPATITIS B SURFACE 2022-05-04 19:30:00 SierraEarl [facility] ANTIGEN [facility] ADC OR SAMMY ONLY - RPR 2022-05-04 19:30:00 [facility]arl [facility]-AB WITH REFLEX 2022-05-04 19:30:00 Earl Sierra [facility] HB ABO GROUPING 2022-05-04 19:29:00 Earl Sierra [facility] RHO (D) IMMUNE GLOBULIN 2022-05-04 19:29:00 Earl Sierra [facility] HB ABO GROUPING 2022-05-04 19:29:00 Earl Sierra [facility] RHO (D) IMMUNE GLOBULIN 2022-05-04 19:29:00 Earl Sierra [facility] ADC ONLY - FERN TEST 2022-05-04 17:34:00 Earl Sierra [facility] COVID-19 (ID NOW RAPID 2022-05-04 17:34:00 Earl Sierra [facility] TESTING) Medical Branch LAB ONLY COVID 2022-05-04 17:34:00 Earl Sierra [facility] ADC ONLY - FERN TEST 2022-05-04 17:34:00 Earl Sierra [facility] COVID-19 (ID NOW RAPID 2022-05-04 17:34:00 Earl Sierra [facility] TESTING) Medical Branch LAB ONLY COVID 2022-05-04 17:34:00 Earl Sierra [facility] NON-STRESS TEST 2022-05-04 15:26:21 Kim Bentley [facility] POCT URINALYSIS W/O 2022-05-04 00:00:00 [facility]RAV[facility] Encounters Start End Encounter Admission Attending Care Care Encounter Source Date/Time Date/Time Type Type Clinicians Facility Department ID 2022-10-02 2022-10-02 Outpatient R MARQUEZ VARNER [facility] B [id number] Univers 10:30:00 11:43:01 MARQUEZ VARNER [facility] 2022-10-02 2022-10-02 Office Bridgett AKFLORINDA RIVERTON 1.2.840.114 [id number] Univers 10:30:00 11:00:00 Visit Marquez THOMPSON 350.1.13.10 it y [place] [id number] [address] 2022-09-25 2022-09-25 Pre Visit JUAN R Rodriguez 1.2.726.843 [id number] Univers 00:00:00 00:00:00 Outreach Reina MARTINEZ 350.1.13.10 i ty of [place] [id number] [address] 2022-09-13 2022-09-13 Outpatient R MARQUEZ VARNER [facility] B [id number] Univers 10:00:00 10:20:08 MARQUEZ VARNER [facility] 2022-09-13 2022-09-13 Office [facility] 1.2.840.114 [id number] Univers 10:00:00 10:20:08 Visit Marquez THOMPSON 350.1.13.10 it y [place] [id number] [address] 2022-09-13 2022-09-13 Telephone [facility] 1.2.840.11 [id number] Univers 00:00:00 00:00:00 Marquez THOMPSON 350.1.13.10 it y [place] [id number] [address] 2022-09-08 2022-09-08 Refill [facility] 1.2.840.114 [id number] Univers 00:00:00 00:00:00 Marquez THOMPSON 350.1.13.10 it y [place] [id number] [address] 2022-06-19 2022-06-19 Outpatient R MARQUEZ VARNER [facility] B [id number] Univers 13:15:00 13:58:56 MARQUEZ VARNER [facility] 2022-06-19 2022-06-19 Routine [facility] 1.2.840.114 [id number] Univers 13:15:00 13:58:56 Marquez THOMPSON 350.1.13.10 i ty of [place] [id number] [address] 2022-05-29 2022-05-29 Outpatient R MARQUEZ VARNER [facility] B [id number] Univers 13:00:00 13:15:49 PAULAMARQUEZ BAE [facility] 2022-05-29 2022-05-29 Routine [facility] 1.2.840.114 [id number] Univers 13:00:00 13:15:49 Marquez THOMPSON 350.1.13.10 i ty of [place] [id number] [address] 2022-05-19 2022-05-19 Nurse Nurse, Bullj [facility] 1.2.840.114 [id number] Univers 10:00:00 10:15:00 Visit Marquez Varner 350.1.13.1 0 ity [place] [id number] [address] 2022-05-19 2022-05-19 Outpatient R MARQUEZ VARNER [facility] B [id number] Univers 10:00:00 10:00:00 PAULAMARQUEZ BAE [facility] 2022-05-12 2022-05-12 Outpatient R MARQUEZ VARNER [facility] B [id number] Univers 13:30:00 14:04:01 PAULAMARQUEZ BAE [facility] 2022-05-12 2022-05-12 [facility]ine [facility] 1.2.840.114 [id number] Univers 13:30:00 14:04:01 Marquez THOMPSON 350.1.13.10 i ty of Visit [place] [id number] [address] 2022-05-12 2022-05-12 Telephone [facility] 1.2.840.11 [id number] Univers 00:00:00 00:00:00 Marquez THOMPSON 350.1.13.10 it y of PEDIATRIC 4.2.7.2.686 [facility] [id number] [facility] [address] 2022-05-04 2022-05-06 Inpatient P EARL SIERRA [facility] SHERIE [id number] Univers 11:16:00 20:15:00 ity of [facility] 2022-05-04 2022-05-06 [facility] Kim Bentley [facility] 1.2.840.114 [id number] Univers 11:16:00 20:15:00 Encounter Earl Sierra Scot LIU 350.1.13.10 ity [facility] 4.2.7.2.686 [facility] [id number] [place] [id number] [place] 2022-05-04 2022-05-04 Inpatient P RIGO [facility] SHERIE [id number] Univers 11:16:00 11:16:00 ity of [facility] 2022-05-04 2022-05-04 Surgery [facility] 1.2.327.073 [id number] Univers 09:05:00 11:05:00 Scot LIU 350.1.13.10 i ty [facility] 4.2.7.2.686 [facility] [id number] [facility] [address] 2022-05-04 2022-05-04 Outpatient R KIM BENTLEY [facility] [id number] Univers 09:00:00 10:30:50 ity of [facility] 2022-05-04 2022-05-04 Routine 1, Mal Aguilar [facility] 1.2.840. 114 [id number] Univers 09:00:00 10:30:50 Kim Bentley 350.1.13.10 ity of Visit WOMEN'S 4.2.7.2.686 [facility] [id number] [facility] [address] 2022-05-02 2022-05-02 Outpatient R [facility] [id number] Univers 09:00:00 09:00:00 ity [facility] 2022-04-28 2022-04-28 Routine 1, Lkj Nst Room [facility] 1.2.840. 114 [id number] Univers 13:15:00 13:15:00 Earl Sierra 350.1.13.10 ity of [place] [id number] [address] 2022-04-28 2022-04-28 Outpatient R [facility]IGO [facility] [id number] Univers 13:15:00 10:06:42 ity of [facility] 2022-04-28 2022-04-28 Outpatient R [facility]IGO [facility] [id number] Univers 09:00:00 09:00:00 ity [facility] 2022-04-28 2022-04-28 Outpatient R [facility] [id number] Univers 09:00:00 09:00:00 ity [facility] 2022-04-21 2022-04-21 Outpatient R SIERRA [facility] [id number] Univers 11:15:00 12:05:44 ity [facility] 2022-04-21 2022-04-21 Routine Earl Sierra [facility] 1.2.840.114 [id number] Univers 11:15:00 12:05:44 Scot THOMPSON 350.1.13.10 i ty of Visit [place] [id number] [address] 2022-04-20 2022-04-20 Clinical Engineering Manager [facility] 1.2 .840.114 [id number] Univers 08:00:00 09:00:00 Visit Carmen Garcia OVERHEAD CRANE TECHNICIAN 350.1. 13.10 ity of REGIONAL 4.2.7.2.686 [place] as MATERNAL [id number] Med ical & CHILD [address] [place] [address] 2022-04-20 2022-04-20 Outpatient P MARVIN [facility] [id number] Univers 08:00:00 08:00:00 SYD it y of SCARMEN [facility] 2022-04-07 2022-04-07 Outpatient R MARQUEZ VARNER [facility] B [id number] Univers 08:30:00 08:46:14 MARQUEZ VARNER ity of [facility] 2022-04-07 2022-04-07 Routine Bridgett AKFLORINDA RENEE 1.2.840.114 [id number] Univers 08:30:00 08:46:14 Marquez THOMPSON 350.1.13.10 i ty of [place] [id number] [address] 2022-03-28 2022-03-28 Telephone Earl Sierra [facility] RENEE 1.2.840.114 [id number] Univers 00:00:00 00:00:00 Scot THOMPSON 350.1.13.10 it y [place] [id number] [address] 2022-03-27 2022-03-27 Clinical Engineering Manager Lab, [facility] 1.2.840.1 [id number] Univers 08:30:00 08:45:00 Visit Earl Sierra [facility] 350.1.13.10 ity of [place] 4.2.7.2.686 [place] as GARRISON?BLEA [id number] [address] MEDICAL OFFICE BUILDING 2022-03-27 2022-03-27 Outpatient R EL[facility] [id number] Univers 08:30:00 08:30:00 ity of [facility] 2022-03-24 2022-03-24 Outpatient R [facility]IGO [facility] [id number] Univers 09:15:00 09:49:29 ity of [facility] 2022-03-24 2022-03-24 Routine Rigo [facility] 1.2.840.114 [id number] Univers 09:15:00 09:49:29 Scot THOMPSON 350.1.13.10 i ty of Visit [place] [id number] [address] 2022-03-23 2022-03-23 Clinical Engineering Manager [facility]trasound, [facility] 1.2 .840.114 [id number] Univers 08:00:00 09:00:00 Visit Lenny Allison OVERHEAD CRANE TECHNICIAN 350.1.13.10 ity of REGIONAL 4.2.7.2.686 [place] as MATERNAL [id number] [facility] & CHILD [address] [place] [address] 2022-03-23 2022-03-23 Outpatient P [facility] [id number] Univers 08:00:00 08:00:00 ity [facility] 2022-03-23 2022-03-23 Outpatient P LENNY [facility] [id number] Univers 08:00:00 08:00:00 ALLISON ity [facility] 2022-03-14 2022-03-14 Outpatient R EARL SIERRA [facility] [id number] Univers 09:00:00 09:00:00 ity [facility] 2022-03-10 2022-03-10 Outpatient R EARL SIERRA [facility] [id number] Univers 09:15:00 09:23:48 ity [facility] 2022-03-10 2022-03-10 Routine TritschlerMarquez [facility] 1.2. 840.114 [id number] Univers 09:15:00 09:23:48 Earl Sierra 350.1.13.10 ity of Visit WOM[place] 4[place]2.7.2.686 [place] [facility] [id number] [address] 2022-03-10 2022-03-10 Outpatient EARL CISSE [facility] [id number] Univers 09:15:00 09:15:00 ity [facility] 2022-02-23 2022-02-23 Clinical Engineering Manager Ultrasound, [facility] 1.2 .840.114 [id number] Univers 08:00:00 09:30:00 Visit Anna Aceves OVERHEAD CRANE TECHNICIAN 350.1.13.10 ity of [place] 4.2.7.2.686 [place] MATERNAL [id number] [facility] & CHILD [address] [place] [address] 2022-02-23 2022-02-23 Outpatient P HOUSTON [facility] [id number] Univers 08:00:00 08:00:00 ANNA ity [facility] 2022-02-10 2022-02-10 Outpatient R EARL SIERRA [facility] [id number] Univers 13:00:00 13:25:30 ity of [facility] 2022-02-10 2022-02-10 Routine Marquez Varner [facility] 1.2. 840.114 [id number] Univers 13:00:00 13:25:30 Rigo Earl THOMPSON 350.1.13.10 ity of Visit [place] [id number] [address] 2022-01-26 2022-01-26 Clinical Engineering Manager 3, [facility] Us Room [facility] 1 .2.840.114 [id number] Univers 13:00:00 15:00:00 Visit Carmelina Boss [facility] 350.1 .13.10 ity of CLINICS [place] [id number] [facility] [address] 2022-01-26 2022-01-26 Outpatient P [facility] [id number] Univers 13:00:00 13:00:00 ity of [facility] 2022-01-26 2022-01-26 Outpatient P GERA [facility] [id number] Univers 13:00:00 13:00:00 CHASEY ity [facility] 2022-01-26 2022-01-26 Refill Earl Sierra [facility] 1.2.840.114 [id number] Univers 00:00:00 00:00:00 Scot THOMPSON 350.1.13.10 it y [place] [id number] [address] 2022-01-13 2022-01-13 Outpatient R RIGOEARL [facility] [id number] Univers 09:00:00 09:17:42 ity [facility] 2022-01-13 2022-01-13 Routine Earl Sierra [facility] 1.2.840.114 [id number] Univers 09:00:00 09:17:42 Scot THOMPSON 350.1.13.10 i ty of Visit [place] [id number] [address] 2022-01-11 2022-01-11 Telephone Earl Sierra AKFLORINDA RENEE 1.2.840.114 [id number] Univers 00:00:00 00:00:00 Scot THOMPSON 350.1.13.10 it y of [place] [id number] [address] 2021-12-28 2021-12-28 Orders Doctor GRANADOS 1.2.840.114 [id number] Univers 00:00:00 00:00:00 Only Unassigned, LOPEZ 350.1.13.10 ity of [place] [facility] 4.2.7.2.686 [place] as [id number] [address] 2021-12-20 2021-12-20 Clinical Engineering Manager Lab, [facility] 1.2.840.1 [id number] Univers 10:00:00 10:15:00 Visit Earl Sierra Scot [facility] 350.1.13.10 ity of [place] 4.2.7.2.686 [place] as GARRISON?BLEA [id number] [address] MEDICAL OFFICE BUILDING 2021-12-20 2021-12-20 Outpatient R ELÍAS SIERRAEN [facility] [id number] Univers 10:00:00 10:00:00 ity of [facility] 2021-12-16 2021-12-16 Initial Earl Sierra [facility] VÍCTOR 1.2.840.114 [id number] Univers 10:30:00 11:37:25 Scot THOMPSON 350.1.13.10 i ty of Visit [place] [id number] [address] 2021-12-16 2021-12-16 Outpatient R RIGOELÍASEN [facility] [id number] Univers 10:30:00 11:37:25 ity of [facility] 2021-12-16 2021-12-16 Orders Doctor GRANADOS 1.2.840.114 [id number] Univers 00:00:00 00:00:00 Only Unassigned, LOPEZ 350.1.13.10 ity of [place] [facility] 4.2.7.2.686 [place] as [id number] [address] Results Test Description Test Time Test Comments Results Result Comments Source POCT TEST 2022-06-19 19:05:00 Test Item Value Reference Range Interpretation Comme nts POCT PREG (test code = 1605) Negative On board controls acceptable with C Line (test code = 3574) Yes POCT PREG LOT # (test code = 3575) POCT PREG TEST DATE (test code = 3576) [facility] [id number] 11:10:55 Test Item Value Reference Range Interpretation Comments WBC (test code = See_Comment H [Automated 6690-2) message] The sy stem which generated this result transmitted reference range : 4.30 - 11.10 10*3/?L. The reference range was not used to interpret this result as normal/abnormal . RBC (test code = See_Comment L [Automated 789-8) message] The sy stem which generated this result transmitted reference range : 3.93 - 5.25 10*6/?L. The reference range was not used to interpret this result as normal/abnormal . HGB (test code = 10.3 g/dL 11.6-15 L 718-7) HCT (test code = 30.9 % 35.7-45.2 L 4544-3) MCV (test code = 86.6 fL 80.6-95.5 787-2) MCH (test code = 28.9 pg 25.9-32.8 785-6) MCHC (test code = 33.3 g/dL 31.6-35.1 786-4) RDW-SD (test code = 39.5 fL 39-49.9 77566-2) RDW-CV (test code = 12.7 % 12-15.5 788-0) PLT (test code = See_Comment L [Automated 777-3) message] The sy stem which generated this result transmitted reference range : 166 - 358 10*3/ ?L. The reference r rebecca was not used to interpret this result as normal/abnormal . MPV (test code = 12.9 fL 9.5-12.9 26449-1) IPF % (test code = 10.5 % 1.3-7.7 H Platelet count [id number]) measured by fluorescence method. NRBC/100 WBC (test See_Comment [Automat ed code = 1758711140) message] The system which generated this result transmitted reference range : 0.0 - 10.0 /100 WBCs. The refer ence range was not u sed to interpret th is result as normal/abnormal . NRBC x10^3 (test code See_Comment [Auto mated = 4185064979) message] The s ystem which generated this result transmitted reference range : 10*3/?L. The reference range was not used to interpret this result as normal/abnormal . GRAN MAT (NEUT) % 90.1 % (test code = 770-8) IMM GRAN % (test code 0.70 % = 5397177267) LYMPH % (test code = 6.5 % 736-9) MONO % (test code = 2.5 % 5905-5) EOS % (test code = 0.0 % 713-8) BASO % (test code = 0.2 % 706-2) GRAN MAT x10^3(ANC) 11.01 10*3/uL 1.88-7.09 H (test code = 8528279126) IMM GRAN x10^3 (test 0.08 10*3/uL 0-0.06 H code = 8347927296) LYMPH x10^3 (test 0.80 10*3/uL 1.32-3.29 L code = 731-0) MONO x10^3 (test code 0.31 10*3/uL 0.33-0.92 L = 742-7) EOS x10^3 (test code 0.03-0.39 L = 711-2) BASO x10^3 (test code 0.01-0.07 = 704-7) PLT ESTIMATE (test Decreased Normal A code = 9317-9) GIANT PLATELETS (test Present See_Comment A [Auto mated code = 5908-9) message] The system which generated this result transmitted reference range : (none). The reference range was not used to interpret this result as normal/abnormal . Lab Interpretation Abnormal (test code = 22223-1) [facility] with [id number] 11:10:55 Test Item Value Reference Range Interpretation Comments WBC (test code = See_Comment H [Automated 6690-2) message] The sy stem which generated this result transmitted reference range : 4.30 - 11.10 10*3/?L. The reference range was not used to interpret this result as normal/abnormal . RBC (test code = See_Comment L [Automated 789-8) message] The sy stem which generated this result transmitted reference range : 3.93 - 5.25 10*6/?L. The reference range was not used to interpret this result as normal/abnormal . HGB (test code = 10.3 g/dL 11.6-15 L 718-7) HCT (test code = 30.9 % 35.7-45.2 L 4544-3) MCV (test code = 86.6 fL 80.6-95.5 787-2) MCH (test code = 28.9 pg 25.9-32.8 785-6) MCHC (test code = 33.3 g/dL 31.6-35.1 786-4) RDW-SD (test code = 39.5 fL 39-49.9 42369-5) RDW-CV (test code = 12.7 % 12-15.5 788-0) PLT (test code = See_Comment L [Automated 777-3) message] The sy stem which generated this result transmitted reference range : 166 - 358 10*3/ ?L. The reference r rebecca was not used to interpret this result as normal/abnormal . MPV (test code = 12.9 fL 9.5-12.9 09742-0) IPF % (test code = 10.5 % 1.3-7.7 H Platelet count [id number]) measured by fluorescence method. NRBC/100 WBC (test See_Comment [Automat ed code = 8647260368) message] The system which generated this result transmitted reference range : 0.0 - 10.0 /100 WBCs. The refer ence range was not u sed to interpret th is result as normal/abnormal . NRBC x10^3 (test code See_Comment [Auto mated = 0481756776) message] The s ystem which generated this result transmitted reference range : 10*3/?L. The reference range was not used to interpret this result as normal/abnormal . GRAN MAT (NEUT) % 90.1 % (test code = 770-8) IMM GRAN % (test code 0.70 % = 3578584955) LYMPH % (test code = 6.5 % 736-9) MONO % (test code = 2.5 % 5905-5) EOS % (test code = 0.0 % 713-8) BASO % (test code = 0.2 % 706-2) GRAN MAT x10^3(ANC) 11.01 10*3/uL 1.88-7.09 H (test code = 7599810969) IMM GRAN x10^3 (test 0.08 10*3/uL 0-0.06 H code = 3366159604) LYMPH x10^3 (test 0.80 10*3/uL 1.32-3.29 L code = 731-0) MONO x10^3 (test code 0.31 10*3/uL 0.33-0.92 L = 742-7) EOS x10^3 (test code 0.03-0.39 L = 711-2) BASO x10^3 (test code 0.01-0.07 = 704-7) PLT ESTIMATE (test Decreased Normal A code = 9317-9) GIANT PLATELETS (test Present See_Comment A [Auto mated code = 5908-9) message] The system which generated this result transmitted reference range : (none). The reference range was not used to interpret this result as normal/abnormal . Lab Interpretation Abnormal (test code = 37300-9) [facility] (D) IMMUNE [id number] 02:18:06 Test Item Value Reference Range Interpretation Comments RHIG CANDIDATE? No- see comment Patient i s not a (test code = candidate for R hIg- 5055) Patient is Rh Positive.Perfor med at [facility] Laboratory Services - [facility] Blood [address] [place] [address]Ocri Free: [phone] A No. [id number] [facility] (D) IMMUNE [id number] 02:18:06 Test Item Value Reference Range Interpretation Comments RHIG CANDIDATE? No- see comment Patient i s not a (test code = candidate for R hIg- 5055) Patient is Rh Positive.Perfor med at [facility] Laboratory Services - [facility] Blood [address] [place] [address]Bqre Free: [phone] A No. [id number] [facility] CORD [id number] 00:08:14 Test Item Value Reference Range Interpretation Comments BASE EXCESS, CORD (test mEq/L code = 6249078548) AC PH, CORD (BEAKER) 7.18-7.38 (test code = 7013989806) PC02, CORD (test code = See_Comment [Au tomated message] 6454287263) The system [employer] generated this result transmitted ref erence range: 32 - 66 mmHg. The reference r rebecca was not used to interpret this result as normal/abnor mal. PO2, CORD (test code = See_Comment H [Aut omated message] 9119700507) The system [employer] generated this result transmitted ref erence range: 10 - 30 mmHg. The reference r rebecca was not used to interpret this result as normal/abnor mal. BICARBONATE, CORD (test See_Comment [Au tomated message] code = 1102219919) The syste m which generated this result transmitted ref erence range: 17 - 27 mEq/L. The reference r rebecca was not used to interpret this result as normal/abnor mal. Lab Interpretation (test Abnormal code = 28191-0) [facility] CORD [id number] 00:08:14 Test Item Value Reference Range Interpretation Comments BASE EXCESS, CORD (test mEq/L code = 0199374959) AC PH, CORD (BEAKER) 7.18-7.38 (test code = 8137668099) PC02, CORD (test code = See_Comment [Au tomated message] 5105121710) The system [employer] generated this result transmitted ref erence range: 32 - 66 mmHg. The reference r rebecca was not used to interpret this result as normal/abnor mal. PO2, CORD (test code = See_Comment H [Aut omated message] 5881429832) The system [employer] generated this result transmitted ref erence range: 10 - 30 mmHg. The reference r rebecca was not used to interpret this result as normal/abnor mal. BICARBONATE, CORD (test See_Comment [Au tomated message] code = 9826630781) The syste m which generated this result transmitted ref erence range: 17 - 27 mEq/L. The reference r rebecca was not used to interpret this result as normal/abnor mal. Lab Interpretation (test Abnormal code = 76176-2) [facility] CORD [id number] 00:05:47 Test Item Value Reference Range Interpretation Comments VENOUS BASE EXCESS, mEq/L CORD (test code = 5791203825) VENOUS PH, CORD (test 7.25-7.45 code = 8028170310) VENOUS PC02, CORD See_Comment [Automate d message] The (test code = system which ge nerated 5481335507) this result tra nsmitted reference range : 27 - 49 mmHg. The refer ence range was not used to interpret this result as normal/abnormal . VENOUS PO2, CORD (test See_Comment [Aut omated message] The code = 2726111464) system [facility] generated this result tra nsmitted reference range : 17 - 41 mmHg. The refer ence range was not used to interpret this result as normal/abnormal . VENOUS BICARBONATE, See_Comment [Automa ana message] The CORD (test code = system [facility] generated [id number]) this result tra nsmitted reference range : 12 - 29 mEq/L. The refe rence range was not used to interpret this result as normal/abnormal . [facility] CORD [id number] 00:05:47 Test Item Value Reference Range Interpretation Comments VENOUS BASE EXCESS, mEq/L CORD (test code = [id number]) VENOUS PH, CORD (test 7.25-7.45 code = [id number]) VENOUS PC02, CORD See_Comment [Automate d message] The (test code = system which ge nerated [id number]) this result tra nsmitted reference range : 27 - 49 mmHg. The refer ence range was not used to interpret this result as normal/abnormal . VENOUS PO2, CORD (test See_Comment [Aut omated message] The code = [id number]) system [facility] generated this result tra nsmitted reference range : 17 - 41 mmHg. The refer ence range was not used to interpret this result as normal/abnormal . VENOUS BICARBONATE, See_Comment [Automa ana message] The CORD (test code = system whi ch generated 5263044042) this result tra nsmitted reference range : 12 - 29 mEq/L. The refe rence range was not used to interpret this result as normal/abnormal . [facility] Cord [id number] 00:02:41 Test Item Value Reference Range Interpretation Comments VENOUS BASE EXCESS, CORD mEq/L (test code = 1852584654) VENOUS PH, CORD (test 7.25-7.45 code = 2196941501) VENOUS PC02, CORD (test See_Comment H [Au tomated message] code = 7299081338) The syste m which generated this result transmitted ref erence range: 27 - 49 mmHg. The reference r rebecca was not used to interpret this result as normal/abnor mal. VENOUS PO2, CORD (test See_Comment L [Aut omated message] code = 7749539704) The syste m which generated this result transmitted ref erence range: 17 - 41 mmHg. The reference r rebecca was not used to interpret this result as normal/abnor mal. VENOUS BICARBONATE, CORD See_Comment [A utomated message] (test code = 7232709010) The system which generated this result transmitted ref erence range: 12 - 29 mEq/L. The reference r rebecca was not used to interpret this result as normal/abnor mal. Lab Interpretation (test Abnormal code = 52763-6) [facility] Cord [id number] 00:02:41 Test Item Value Reference Range Interpretation Comments VENOUS BASE EXCESS, CORD mEq/L (test code = 5681093104) VENOUS PH, CORD (test 7.25-7.45 code = 1609266677) VENOUS PC02, CORD (test See_Comment H [Au tomated message] code = 3691058791) The syste m which generated this result transmitted ref erence range: 27 - 49 mmHg. The reference r rebecca was not used to interpret this result as normal/abnor mal. VENOUS PO2, CORD (test See_Comment L [Aut omated message] code = 7129971426) The syste m which generated this result transmitted ref erence range: 17 - 41 mmHg. The reference r rebecca was not used to interpret this result as normal/abnor mal. VENOUS BICARBONATE, CORD See_Comment [A utomated message] (test code = 5845198977) The system which generated this result transmitted ref erence range: 12 - 29 mEq/L. The reference r rebecca was not used to interpret this result as normal/abnor mal. Lab Interpretation (test Abnormal code = 05018-3) [facility] Cord [id number] 00:00:12 Test Item Value Reference Range Interpretation Comments BASE EXCESS, CORD mEq/L (test code = 0713665011) AC PH, CORD (BEAKER) 7.18-7.38 (test code = 2990124168) PC02, CORD (test code See_Comment [Auto mated message] The = ) system which g enerated this result transmit ana reference range : 32 - 66 mmHg. The refer ence range was not used to interpret this result as normal/abnormal . PO2, CORD (test code See_Comment [Autom ated message] The = ) system which g enerated this result transmit ana reference range : 10 - 30 mmHg. The refer ence range was not used to interpret this result as normal/abnormal . BICARBONATE, CORD See_Comment [Automate d message] The (test code = system which ge nerated this 7231781950) result transmit ana reference range : 17 - 27 mEq/L. The refe rence range was not used to interpret this result as normal/abnormal . [facility] Cord [id number] 00:00:12 Test Item Value Reference Range Interpretation Comments BASE EXCESS, CORD mEq/L (test code = 2313866283) AC PH, CORD (BEAKER) 7.18-7.38 (test code = 9977645564) PC02, CORD (test code See_Comment [Auto mated message] The = ) system which g enerated this result transmit ana reference range : 32 - 66 mmHg. The refer ence range was not used to interpret this result as normal/abnormal . PO2, CORD (test code See_Comment [Autom ated message] The = 8891055495) system which g enerated this result transmit ana reference range : 10 - 30 mmHg. The refer ence range was not used to interpret this result as normal/abnormal . BICARBONATE, CORD See_Comment [Automate d message] The (test code = system which ge nerated this 7076176525) result transmit ana reference range : 17 - 27 mEq/L. The refe rence range was not used to interpret this result as normal/abnormal . [facility] and Screen - ONCE [id number] 21:06:31 Test Item Value Reference Range Interpretation Comments ABO & RH (test code A Positive Performe d at [facility] = 20) Laboratory [facility] Blood [address] [place], [place] [address]ll Free: [phone] A No. [id number] IAT (test code = Negative Performed a t [facility] 1185) Laboratory [facility] Blood [place] [address]Toll Free: [phone] A No. [id number] [facility] and Screen - ONCE [id number] 21:06:31 Test Item Value Reference Range Interpretation Comments ABO & RH (test code A Positive Performe d at [facility] = 20) Laboratory [facility] Blood [facility] [place], [place] [address]Toll Free: [phone] A No. [id number] IAT (test code = Negative Performed a t [facility] 1185) Laboratory [facility] Blood [facility] [place], [place] [address]Toll Free: [phone] A No. [id number] [facility] W/O SPECIFIC [id number] 15:24:00 Test Item Value Reference Range Interpretation Comments POCT PH U (test code = 3254) n/a 5-8 POCT U LEUK EST (test code = n/a Negative - Negative 3263) POCT U NIT (test code = 3262) n/a Negative - Negative POCT U PROT (test code = 3259) negative Negative - Negative POCT U GLU (test code = 3256) negative Negative - Negative POCT U KETONE (test code = 3258) n/a Negative - Negative POCT U BLD (test code = 3257) n/a Negative - Negative [facility], NAAT, [id number] 18:09:27 Test Item Value Reference Range Interpretation Comments GONORRHEA, NAAT NEGATIVE NEGATIVE IMPORTA NT NOTICE: SEE (test code = [place] [address]) [email or web address] Note: Assay methodology is nucleic acid amplification b y jawbone puller m ediated amplification ( TMA) utilizing the A ptima Combo 2 Assay. CHLAMYDIA, NAAT NEGATIVE NEGATIVE IMPORTA NT NOTICE: SEE (test code = [place] [address]) [email or web address] Note: Assay methodology is nucleic acid amplification b y jawbone puller m ediated amplification ( TMA) utilizing the A ptima Combo 2 Assay. UNLESS OTHERWISE INDICATED, ALL TESTING PERFORMED [facility] PATHOLOGY [facility], [facility]. [address] [place] [address] DIRECTOR: MARCELLA MCCULLOUGH M.D. CLIA NUMBER [id number] CAP ACCREDITATION N O. [id number] HEMOGLOBIN [id number] 09:22:30 Test Item Value Reference Range Interpretation [...] % NONE DETECTED VARIANT (test code = 05479) PATHOLOGIST'S (NOTE) NO ABNORMAL INTERPRETATION (test HEMOGLO BINS code = 2577) IDENTIFIED. PENNY FAITH M.D. CT/NG, NAAT, [id number] 08:17:43 Test Item Value Reference Range Interpretation Comments GONORRHEA, NAAT TEST NOT PERFORMED NEGATIVE Unable to perform (test code = testing, specim [place] 401[address]) not received.Charge s adjusted as applicable. CHLAMYDIA, NAAT TEST NOT PERFORMED NEGATIVE Unable to perform (test code = testing, specim en 53975) not received.Charge s adjusted as applicable. DRUG ABUSE SCREEN 10 REFLEX [id number] 08:17:28 Test Item Value Reference Interpretation Comments [...] OXYCODONE (test code TEST NOT NEGATIVE = 88385) PERFORMED PHENCYCLIDINE (test TEST NOT NEGATIVE code = 3210) PERFORMED METHADONE (test code TEST NOT NEGATIVE = 3207) PERFORMED BUPRENORPHINE (test TEST NOT NEGATIVE code = 23944) PERFORMED SOURCE (test code = TEST NOT SEE BELOW FOR 479132) PERFORMED THRESHOLDS AND IMPORTANT METHOD NOTES * ANALYTE SCREENING CUTOF F CONFIRMATORY CUTOFF ___AMPHETAMINES 500 NG/ML 100 NG/MLBARBITURAT ES 200 NG/ML 100 NG/MLBENZODIAZE PINES 200 NG/ML 100 NG/MLCANNABINOI DS (THC) 20 NG/ML 15 NG/ MLCOCAINE METABOLITES 150 NG/ML 100 NG/MLOPIATE METABOLITES 300 NG/ML 100 NG/MLOXYCOD ONE 100 NG/ML 100 NG/MLPHENCYCLID INE (PCP) 25 NG/ML 25 NG/MLMETHADONE 300 NG/ML 100 NG/MLBUPRENORPH INE 5 NG/ML 5 NG/ML N OTE: Screening [...] PERFORM ED ATCLINICAL PATH [facility]LOG[facility] LAB[facility]ATOR[facility], [place]. [address] [place] [address] LABORATORY DIRE CTOR: MARCELLA OLSON M.D. CLIA NUMBER [id number] [place] [id number] DRUG ABUSE SCREEN 10 REFLEX [id number] 05:02:41 Test Item Value Reference Range Interpretation Comments AMPHETAMINES (test NEGATIVE NEGATIVE code = 3201) BARBITURATES (test NEGATIVE NEGATIVE code = 3202) BENZODIAZEPINES (test NEGATIVE NEGATIVE code = 3203) CANNABINOIDS (test NEGATIVE NEGATIVE code = 3204) COCAINE METABOLITE NEGATIVE NEGATIVE (test code = 3205) OPIATES (test code = NEGATIVE NEGATIVE 3209) OXYCODONE (test code NEGATIVE NEGATIVE = 22592) PHENCYCLIDINE (test NEGATIVE NEGATIVE code = 3210) METHADONE (test code NEGATIVE NEGATIVE = 3207) BUPRENORPHINE (test NEGATIVE NEGATIVE code = 77866) SOURCE (test code = URINE SEE BELOW FOR 989005) THRESHOLDS AND IMPORTANT METHOD NOTES * ANALYTE SCREENING CUTOF F CONFIRMATORY CUTOFF AMPHETAMINES 50 0 NG/ML 100 NG/MLBARBIT URATES 200 NG/ML 100 NG/MLBENZODIAZE PINES 200 NG/ML 100 NG/MLCANNABINOI DS (THC) 20 NG/ML 15 NG/ MLCOCAINE METABOLITES 150 NG/ML 100 NG/MLOPIATE MET ABOLITES [...] not valid for forensic use. VARICELLA ZOSTER [id number] 18:06:16 Test Item Value Reference Range Interpretation Comments VARICELLA ZOSTER IgG 37 INDEX SEE BELOW L INTERP RETATION VZV IgG (test code = 09912) NEGATIVE . . . . . . . . . . . . INDEX < 135 EQUIVOCAL. . . . . . . . . . . . INDEX 1 35-164 NOTE: CONSIDER RETESTING IN A CLINICALLY SUITABLE PERIOD OF TIME, NO SOONER THAN 1-2 WEEKS. POSITIVE . . . . . . . . . . . . INDEX >=165 CULTURE, [id number] 09:18:22SPECIMEN NUMBER: [id number] CULTURE, URINE SPECIMEN NUMBER: [id number] SPECIMEN COMMENT: URINE SOURCE: URINE REPORT STATUS: FINAL FINAL REPORT: 11/06/2021 10-50,000 CFU/ML MIXED UROGENITAL FLORARPR 2021-11-05 05:45:07 Test Item Value Reference Range Interpretation Comments RPR RESULT (test code = NON-REACTIVE NON-REACTIVE 3501) RPR TITER (test code = 3500) NOT INDIC. TITER NOT INDIC. OBSTETRIC PANEL + [id number] 04:21:28 Test Item Value Reference Range Interpretation [...] message] (test code = 1065) The syste [employer] which generated this result transmit ana reference [...] RBCS 0.00 K/UL 0.00-0.11 (test code = 38285) BLOOD TYPE AND RH A POSITIVE A HISTORI ALEKSANDR RECORD (test code = 3901) CHECK FOR PREVIOUS RESULTS IS NOT PERFORMED.THESE RESULTS SHOULD BE CORRELATED WITH RESULTS OF PRIO R BLOODTYPING AND ANTIBODY SCREEN STUDIES. ANTIBODY SCREEN NEGATIVE NEGATIVE A HISTORICA L RECORD (test code = 3903) CHECK FOR PREVIOUS RESULTS IS NOT PERFORMED.THESE [...] IgG INTERP REACTIVE REACTIVE (test code = 08349) HEPATITIS B SURF AG NON-REACTIVE NON-REACTIVE (test code = 2739) RPR (test code = NON-REACTIVE NON-REACTIVE 81928) RPR TITER (test NOT INDIC. NOT INDIC. code = 3500) TITER HIV 1/2 4TH GEN, NON-REACTIVE NON-REACTIVE RFLX CONF (test code = 3514) HEPATITIS C REFLEX [id number] 04:21:28 Test Item Value Reference Range Interpretation Comments HEPATITIS C ANTIBODY (test code NON-REACTIVE NON-REACTIVE = 4675)
[2023-02-27] MEDS ORDERED: predniSONE 20 MG TAB ONE (22:15)
[2023-02-27] MEDS ORDERED: DIPHENHYDRAMINE 25 MG TAB/CAP ONE (22:15)
--- NOTE | 2023-02-27 23:14 | EDPHYS ---
Physician Documentation [facility] Name: Monika Ames Age: 22 yrs Sex: Female : 2000 Arrival Date: 02/27/2023 Time: 21:12 Bed IW3 Private MD: ED Physician Isaac Chacon HPI: 02/27 21:39 This 22 yrs old Female presents to ER via Ambulatory with complaints of sp4 Allergic Reaction. 23:09 Patient presents with acute allergic reaction starting at about 7 PM secondary to sp4 unknown food substance. Patient states she was eating hamburger and developed diffuse generalized red pruritic rash. The rash has improved after the patient took 25 mg Benadryl at home. Patient is here for additional evaluation. Denied any shortness of breath or vomiting. . SPECIAL POLICE: 21:33 LMP 02/06/2023 ll3 Historical: - Allergies: 21:33 No Known Allergies; ll3 - PMHx: 21:33 None; ll3 - PSHx: 21:33 section; ll3 - Immunization history:: Client reports receiving the 2nd dose of the Covid vaccine. - Social history:: Smoking status: Patient denies any tobacco usage or history of. - Family history:: not pertinent. ROS: 23:09 Constitutional: Negative for fever, chills, and weight loss, Skin: Negative for injury, sp4 and discoloration, positive diffuse generalized rash. Allergy/Immunology: Negative for allergies , positive diffuse generalized hives and the rash Exam: 23:09 Constitutional: This is a well developed, well nourished patient who is awake, alert, sp4 and in no acute distress. Head/Face: Normocephalic, atraumatic. Eyes: Pupils equal round and reactive to light, extra-ocular motions intact. Lids and lashes normal. Conjunctiva and sclera are not injected. Cornea within normal limits. Periorbital areas with no swelling, redness, or edema. ENT: Nares patent. No nasal discharge, no septal abnormalities noted. Tympanic membranes are normal and external auditory canals are clear. Oropharynx with no redness, swelling, or masses, exudates, or evidence of obstruction, uvula midline. Mucous membranes moist. Neck: Trachea midline, no thyromegaly or masses palpated, and no cervical lymphadenopathy. Supple, full range of motion without nuchal rigidity, or vertebral point tenderness. Chest/axilla: Normal chest wall appearance and motion. Nontender with no deformity. No lesions are appreciated. Cardiovascular: Regular rate and rhythm with a normal S1 and S2. No gallops, murmurs, or rubs. Normal PMI, no JVD. No pulse deficits. Respiratory: Lungs have equal breath sounds bilaterally, clear to auscultation and percussion. No rales, rhonchi or wheezes noted. No increased work of breathing, no retractions or nasal flaring. Abdomen/GI: Soft, non-tender, with normal bowel sounds. No distension or tympany. No guarding or rebound. No evidence of tenderness throughout. Back: No spinal tenderness. No costovertebral tenderness. Skin: Warm, dry with normal turgor. Normal color with no lesions, and no evidence of cellulitis. Diffuse mild hives present, no additional rashes MS/ Extremity: Pulses equal, no cyanosis. Neurovascular intact. Full, normal range of motion. Neuro: Awake and alert, GCS 15, oriented to person, place, time, and situation. Cranial nerves II-XII grossly intact. Motor strength 5/5 in all extremities. Sensory grossly intact. Psych: Awake, alert, with orientation to person, place and time. Behavior, mood, and affect are within normal limits Vital Signs: 21:30 BP 130 / 68; Pulse 86; Resp 16; Temp 98.3(O); Pulse Ox 100% on R/A; Weight 79.83 kg ll3 (R); Height 5 ft. 1 in. (R); Pain 0/10; 21:30 Body Mass Index 33.25 (79.83 kg, 154.94 cm) ll3 21:30 Pain Scale: Adult ll3 MDM: 21:41 Patient medically screened. sp4 23:12 Differential diagnosis: urticaria, Contact dermatitis, allergic dermatitis. Data sp4 reviewed: vital signs, nurses notes, lab test result(s), UPT: negative. ED course: Patient is stable for discharge home with 5-day course of prednisone. Administered Medications: 22:12 Drug: predniSONE PO 60 mg Route: PO; ll3 23:22 Follow up: Response: No adverse reaction; Marked relief of symptoms ll3 22:12 Drug: diphenhydrAMINE PO 25 mg Route: PO; ll3 23:21 Follow up: Response: No adverse reaction; Marked relief of symptoms ll3 Disposition Summary: 02/27/23 23:13 Discharge Ordered Location: Home sp4 Problem: new sp4 Symptoms: have improved sp4 Condition: Stable sp4 Diagnosis - Acute allergic hives, acute systemic allergic reaction sp4 Followup: sp4 - With: Private Physician - When: 7 - 10 days - Reason: Recheck today's complaints Discharge Instructions: - Discharge Summary Sheet sp4 - Hives, [id number] sp4 Forms: - [facility]Port[facility]Instructions_BRZ.htm sp4 Prescriptions: - Benadryl 25 mg Oral Capsule - take 1 capsule by ORAL route every 8 hours As needed PRN itching or redness; 30 sp4 tablet; Refills: 0, Product Selection Permitted - Prednisone 20 mg Oral Tablet - take 2 tablets by ORAL route once daily for 5 days; 10 tablet; Refills: 0, sp4 Product Selection Permitted Signatures: Dispatcher [facility] Babak Escalera RN RN 3 Isaac Chacon MD MD sp4
--- NOTE | 2023-02-27 23:14 | ER ---
Nurse's Notes [facility] Name: Monika Ames Age: 22 yrs Sex: Female : 2000 Arrival Date: 02/27/2023 Time: 21:12 Bed IW3 Private MD: Diagnosis: Acute allergic hives, acute systemic allergic reaction Presentation: 02/27 21:30 Chief complaint: Patient states: C/o itchy rash all over since 1945, denies difficulty ll3 breathing or swallowing. Coronavirus screen: Vaccine status: Patient reports being unvaccinated. At this time, the client does not indicate any symptoms associated with coronavirus-19. Ebola Screen: No symptoms or risks identified at this time. Onset: The symptoms/episode began/occurred acutely. Anaphylaxis evaluation, the patient reports or I have noted the following symptoms which indicate a significant risk of anaphylaxis: no signs or symptoms of anaphylaxis were noted no signs or symptoms of anaphylaxis were noted. Initial Sepsis Screen: Does the patient meet any 2 criteria? No. Patient's initial sepsis screen is negative. Does the patient have a suspected source of infection? No. Patient's initial sepsis screen is negative. Risk Assessment: Do you want to hurt yourself or someone else? Patient reports no desire to harm self or others. Onset of symptoms was February 27, 2023 at 19:45. Care prior to arrival: Medication(s) given: Benadryl at 1999. 21:30 Method Of Arrival: Ambulatory ll3 21:30 Acuity: GABRIELLA 3 ll3 Triage Assessment: 21:33 General: Appears uncomfortable, Behavior is calm, cooperative. Pain: Denies pain. ll3 Respiratory: Airway is patent Respiratory effort is even, unlabored, Respiratory pattern is regular, symmetrical. Derm: Rash noted that is itchy, red, raised, on face, back, chest, abdomen, right arm, right leg and left leg. 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 - Social history:: Smoking status: Patient denies any tobacco usage or history of. - Family history:: not pertinent. Screenin:21 [facility] ED Fall Risk Assessment (Adult) History of falling in the last 3 months, ll3 including since admission No falls in past 3 months (0 pts) Confusion or Disorientation No (0 pts) Intoxicated or Sedated No (0 pts) Impaired Gait No (0 pts) Mobility Assist Device Used No (0 pt) Altered Elimination No (0 pt) Score/Fall Risk Level 0 - 2 = Low Risk Oriented to surroundings, Maintained a safe environment, Educated pt \T\ family on fall prevention, incl call for assistance when getting out of bed. Abuse screen: Denies threats or abuse. Denies injuries from another. Nutritional screening: No deficits noted. Tuberculosis screening: No symptoms or risk factors identified. Assessment: 21:33 General: See triage assessment. ll3 23:22 Reassessment: Patient and/or family updated on plan of care and expected duration. Pain ll3 level reassessed. Patient is alert, oriented x 3, equal unlabored respirations, skin warm/dry/pink. Patient states feeling better. Patient states symptoms have improved. Critical care time stopped, patient has stabilized. 23:22 Respiratory: Airway is patent Respiratory effort is even, unlabored, Respiratory ll3 pattern is regular, symmetrical, Breath sounds are clear bilaterally. Vital Signs: 21:30 BP 130 / 68; Pulse 86; Resp 16; Temp 98.3(O); Pulse Ox 100% on R/A; Weight 79.83 kg ll3 (R); Height 5 ft. 1 in. (R); Pain 0/10; 21:30 Body Mass Index 33.25 (79.83 kg, 154.94 cm) ll3 21:30 Pain Scale: Adult ll3 ED Course: 21:17 Patient arrived in ED. im 21:33 Triage completed. ll3 21:33 Arm band placed on left wrist. Patient placed in waiting room, Patient notified of wait ll3 time. 21:39 Isaac Chacon MD is Attending Physician. sp4 23:21 Patient has correct armband on for positive identification. Adult w/ patient. ll3 23:21 No provider procedures requiring assistance completed. Patient did not have IV access ll3 during this emergency room visit. Administered Medications: 22:12 Drug: predniSONE PO 60 mg Route: PO; ll3 23:22 Follow up: Response: No adverse reaction; Marked relief of symptoms ll3 22:12 Drug: diphenhydrAMINE PO 25 mg Route: PO; ll3 23:21 Follow up: Response: No adverse reaction; Marked relief of symptoms ll3 Medication: 23:21 VIS not applicable for this client. ll3 Outcome: 23:13 Discharge ordered by . sp4 23:21 Discharged to home ambulatory, with significant other. ll3 23:21 Condition: stable 23:21 Discharge instructions given to patient, family, Instructed on discharge instructions, follow up and referral plans. medication usage, Demonstrated understanding of instructions, follow-up care, medications, Prescriptions given X 2. 23:23 Patient left the ED. ll3 Signatures: Babak Cadet RN RN ll3 Isaac Chacon MD MD sp4 Nora Abebe
[2023-02-27 23:28] VITALS: BP 130/68; TEMP 98.3; O2SAT 100
== END 2023-02-27 23:23 | disposition home or self-care (01) ==
LOC: ER 21:12
DX: L50.0 Allergic urticaria (principal)
CPT/HCPCS: 99283; J7512